=== PATIENT | female | born 1995 | race African-American/Black ===

== ENCOUNTER 2022-08-07 10:56 | Outpatient (CLI) | payer BC, SELFPAY | END 2022-08-07 10:57 | disposition home or self-care (01) | PROVIDERS: PCP Family Medicine; Visit Provider Family Medicine | DX: Z00.00 Encounter for general adult medical examination without abnormal findings (principal); R10.9 Unspecified abdominal pain; K59.01 Slow transit constipation; F41.9 Anxiety disorder, unspecified | CPT/HCPCS: 80053; 84443 ==

== ENCOUNTER 2022-09-19 08:25 | Day surgery (SDC) | payer BC, SELFPAY ==
[2022-09-19 08:29] VITALS: BP 137/83; PULSE 116; RESP 18; TEMP 36.5; O2SAT 99; BMI 34.9
--- NOTE | 2022-09-19 09:02 | ED_ITS ---
HPI - General Adult General Chief complaint: Urogenital Problems, Female Stated complaint: bartholin cyst Time Seen by Provider: 09/19/22 08:30 History of Present Illness HPI narrative: Patient is a 27-year-old female who has had a history of marsupialization of a couple of Bartholin's cyst, she has had a 91 as well. She reports on the right lateral part of her labial area. She has had some mild nausea with this as well. She has a long history of mental health issues. She has had no fevers or chills. Her vital signs here are unremarkable. She does have slightly elevated pulse retested this seems a little bit lower. Related Data Previous Rx's Medication Instructions Recorded clonazepam 0.5 mg tablet (Klonopin) 0.5 mg PO BID #60 tabs 08/07/22 lorazepam 0.5 mg tablet 0.5 mg PO BID PRN anxiety #10 tabs 08/07/22 lamotrigine 25 mg tablet (Lamictal) 25 - 100 mg PO DIRECTED #100 08/30/22 tabs cephalexin 500 mg capsule 500 mg PO TID #21 caps 09/19/22 oxycodone 5 mg tablet 5 mg PO Q6H PRN 4 OR GREATER ON 09/19/22 PAIN SCALE #4 tabs Allergies Allergy/AdvReac Type Severity Reaction Status Date / Time No Known Drug Allergies Allergy Verified 09/19/22 11:10 Review of Systems Status of ROS: Reports: 6 or more systems reviewed and unremarkable except as noted in History and below PFSH PFS Medical History (Updated 09/19/22 @ 11:03 by Ambika Cardoso MD) Anxiety ?F41.9 - Anxiety disorder, unspecified (ICD-10) Binge eating ?R63.2 - Polyphagia (ICD-10) Bipolar II disorder ?F31.81 - Bipolar II disorder (ICD-10) Depression with anxiety ?F41.8 - Other specified anxiety disorders (ICD-10) History of migraine ?Z86.69 - Personal history of other diseases of the nervous system and sense organs (ICD-10) OCD (obsessive compulsive disorder) ?F42.9 - Obsessive-compulsive disorder, unspecified (ICD-10) Panic attacks ?F41.0 - Panic disorder [episodic paroxysmal anxiety] (ICD-10) Surgical History (Updated 09/19/22 @ 11:03 by Ambika Cardoso MD) Bartholin's duct cyst (2020) ?N75.0 - Cyst of Bartholin's gland (ICD-10) Social History (Updated 09/19/22 @ 11:05 by Ambika Cardoso MD) Highest level of school completed/degree received: some college, no degree Smoking Status: Never smoker How often do you have a drink containing alcohol: monthly or less AUDIT-C Alcohol total score: 1 Non-prescribed substance use: denies use Caffeine: Yes Little interest or pleasure in doing things: several days Feeling down, depressed, or hopeless: nearly every day Do you think of yourself as: straight/heterosexual Gender Identity: female Are you currently sexually active: Yes In the past 12 months, how many sex partners have you had: one Are you using contraception or practicing any form of control: Yes (IUD) service: No Exam Narrative: Exam Narrative: Objective: Vital signs show slightly elevated pulse Afebrile Abdomen is benign With nurse Desirae present exam externally of the perineum shows no warmth erythema no swelling no fluctuance. The patient does point to her right lateral labia area is the area of difficulty. But again there is no palpable mass or redness. No swelling Const: Vital Signs, click to edit/add: Vital Signs - 24 hr 09/19/22 08:29 09/19/22 11:11 09/19/22 12:05 Temperature 97.7 F 98.2 F 97.1 F L Pulse Rate 89 66 Pulse Rate [Right Pulse Oximeter] 116 H Respiratory Rate 18 16 Blood Pressure 121/88 108/70 Blood Pressure [Ri ght Upper Arm] 137/83 Pulse Oximetry 99 97 98 Oxygen Delivery Me thod Room Air Room Air Room Air 09/19/22 12:20 09/19/22 12:30 Temperature 97.6 F 97.6 F Pulse Rate 72 76 Pulse Rate [Right Pulse Oximeter] Respiratory Rate 16 16 Blood Pressure 114/69 113/81 Blood Pressure [Ri ght Upper Arm] Pulse Oximetry 98 98 Oxygen Delivery Me thod Room Air Room Air Course Vital Signs Vital signs: Initial Vital Signs Temperature 97.7 F 09/19/22 08:29 Temperature Source Temporal Artery Scan 09/19/22 08:29 Pulse Rate 116 H 09/19/22 08:29 Pulse Rhythm Regular 09/19/22 08:29 Pulse Strength 3+ Normal 09/19/22 08:29 Respiratory Rate 18 09/19/22 08:29 Blood Pressure 137/83 09/19/22 08:29 Blood Pressure Mean 101 09/19/22 08:29 Blood Pressure Position Supine 09/19/22 08:29 Pulse Oximetry 99 09/19/22 08:29 Oxygen Delivery Method Room Air 09/19/22 08:29 Vital Signs Temperature 97.7 F 09/19/22 08:29 Pulse Rate 116 H 09/19/22 08:29 Respiratory Rate 18 09/19/22 08:29 Blood Pressure 137/83 09/19/22 08:29 Pulse Oximetry 99 09/19/22 08:29 Oxygen Delivery Method Room Air 09/19/22 08:29 Temperature 97.6 F 09/19/22 12:30 Pulse Rate 76 09/19/22 12:30 Respiratory Rate 16 09/19/22 12:30 Blood Pressure 113/81 09/19/22 12:30 Pulse Oximetry 98 09/19/22 12:30 Oxygen Delivery Method Room Air 09/19/22 12:30 Medical Decision Making MDM Narrative Medical decision making narrative: Patient has had history of Bartholin's cyst status post or x2, ER x1 with I&D. At this point ice do not see any fluctuant area to I&D. I think maybe antibi otics would be appropriate, warm soaks Sitz baths, follow-up with OBGYN in the next 3-5 days. Return sooner as needed, Tylenol or Advil as needed. Lab Data Labs: Lab Results 09/19/22 Range/Units 10:57 Urine HCG, Qual Negative (Negative) SARS-CoV-2 Ag (Rapid) Negative (Negative) Discharge Plan Discharge Clinical Impression: Perineum pain, female Condition: Stable Activity Level: Light activity Activity Detail: Nothing in the vagina for 2 weeks (no tampons or intercourse). Off work today through Saturday. Discharge Diet: Regular
[2022-09-19] MEDS: LACTATED RINGERS 1000 ML 1,000 ML 100 ML IV (11:05)
[2022-09-19] MEDS: SODIUM CHLORIDE 0.9 % (FLUSH) 10 ML SYRINGE IVF (11:05)
[2022-09-19 11:07] LABS: Ur HCG Qualitative* Negative (Negative)
[2022-09-19 11:11] VITALS: BP 121/88; PULSE 89; RESP 16; TEMP 36.8; O2SAT 97; BMI 34.9
[2022-09-19 11:21] LABS: SARS Antigen* Negative (Negative)
--- NOTE | 2022-09-19 11:27 | W.ANESCHARGE ---
Anesthesia Charges Start Date/Time Anesthesia Start Date: 09/19/22 Anesthesia Start Time: 11:20 Stop Date/Time Anesthesia Stop Date: 09/19/22 Anesthesia Stop Time: 12:00 Summary Emergency: MDA
[2022-09-19] MEDS: CEFAZOLIN 2 GM INJ IVP (11:30)
--- NOTE | 2022-09-19 11:59 | W.PM.GYNPROC ---
Procedure Note Time Seen by Provider: 11:59 Date Seen: 09/19/22 Procedure Details: PREOPERATIVE DIAGNOSIS: 1. Infected right Bartholin's duct cyst. POSTOPERATIVE DIAGNOSIS: 1. Infected right Bartholin's duct cyst. PROCEDURE: Incision and drainage with marsupialization right Bartholin's duct cyst. SURGEON: Janae. ANESTHESIA: Monitored anesthesia care and local. COMPLICATIONS: None. ESTIMATED BLOOD LOSS: Less than 10 mL. FINDINGS: Golf ball-sized swelling in the right posterior labia consistent with plans duct cyst. Surrounding erythema. Purulence fluid within the cyst. PROCEDURE NOTE: After obtaining informed consent, the patient was taken to the operating room where she received MAC anesthesia. She was prepared and draped in the normal, sterile fashion in the dorsal lithotomy position. An examination was performed under anesthesia which confirmed the findings noted above. A total 3 mL 1% lidocaine plain was injected subcutaneously into the medial superior aspect of the cyst just within the vaginal introitus to make a small wheal. An 11 blade was then used to make a stab wound into the cyst. Immediately, blood and purulent fluid extruded from the incision. The fluid was cultured. Pressure was maintained on the cyst until it completely drained. The incision was extended to 10 mm. The underlying cyst wall was identified and grasped with 2 Mora clamps. The incision was then marsupialized by suturing the skin edge incorporating the underlying cyst wall in a running locking fashion circumferentially with a 3-0 chromic suture. The opening was reduced to about 5 mm following marsupialization. The patient tolerated the procedure well. Sponge, lap, needle, and instrument counts reported as correct x2. The patient was taken to the recovery room awake and in stable condition. She received 2 g IV Ancef preoperatively.
--- NOTE | 2022-09-19 12:04 | W.ANESCHARGE ---
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
[2022-09-19 12:05] VITALS: BP 108/70; PULSE 66; TEMP 36.2; O2SAT 98
[2022-09-19 12:20] VITALS: BP 114/69; PULSE 72; RESP 16; TEMP 36.4; O2SAT 98
[2022-09-19 12:30] VITALS: BP 113/81; PULSE 76; RESP 16; TEMP 36.4; O2SAT 98
== END 2022-09-19 13:02 | disposition home or self-care (01) ==
LOC: ED 10:39 → OR 10:46
PROVIDERS: Emergency Provider Family Medicine; PCP Family Medicine; Visit Provider Obstetrics & Gynecology
PROC: (CPT 56740; principal; 2022-09-19 11:00)
DX: N75.0 Cyst of Bartholin's gland (principal)
CPT/HCPCS: 56440; 00940; 81025; 87070; 87075; 87205; 87426; 99140; 99283; 99284; J0690; J1100; J1885; J2250; J2405; J2704; J3010; J7120

== ENCOUNTER 2022-09-28 09:50 | Emergency (ER) | payer BC, SELFPAY ==
[2022-09-28 10:01] VITALS: BP 135/99; PULSE 91; RESP 18; TEMP 36.7; O2SAT 98; BMI 34.9
--- OUTSIDE RECORDS SUMMARY | 2022-09-28 10:38 | XMS_ITS | Summary of Care ---
Author Name Unknown Organization [facility] Address [address] [address] Encounter 01/19/19 - 01/19/19 [facility] [address] [place] [id number] [facility] Encounter Diagnosis Vulvar cyst(Discharge Diagnosis) - 01/19/19 Discharge Disposition: Home Attending Physician: Mayo Small MD Admitting Physician: Mayo Small MD Referring Physician: Mayo Small MD Allergies, Adverse Reactions, Alerts No Known Allergies Assessment and Plan Extracted from: Title:Clinic Visit Author:Mayo Small MD Date :01/19/19 Vulvar cyst Right vulvar majora cyst possibly arising from a hair follicle.?? Patient advised to do sitz bath or use warm compresses.?? Also, patient advised to??discontinue shaving with razors. ??She may use hair clippers to shaving the future.?? She should return in 1 week if not improved or if spontaneous??drainage has not occurred. Functional Status 01/19/19 ADLs (func) Independent Disabilities (func) None Medications Prozac 40 mg oral capsule 40 MG = 1 CAP, orally, 1 time a day, Refill(s) 0 Start Date: 01/19/19 Status: Ordered Vital Signs Most recent to oldest [Reference Range]: 1 Blood Pressure [100-150/50-95 mmHg] 132/ 84mmHg (01/19/19 10:09 AM) BP Site Right upper arm (01/19/19 10:09 AM) BP Cuff Size Regular cuff (01/19/19 10:09 AM) Pulse Site Brachial (01/19/19 10:09 AM) Height 166.5 cm (01/19/19 10:09 AM) Weight 106.7 kg (01/19/19 10:09 AM) Social History Social History Type Response Smoking Status Never (less than 100 in lifetime); Smoking in Household No; Interest in Smoking Cessation Class No; Pt received Marcus Smoking Cessation Custom Ed N/A entered on: 01/19/19 Sex Female Mental Status 01/19/19 Able to Report correct day of the week C orrect Able to Report correct month Accurate wi thin 5 days Able to Report correct year Correct
--- NOTE | 2022-09-28 11:04 | ED.ANXIETY ---
HPI - Anxiety General Date Seen: 09/28/22 Chief Complaint: Anxiety Stated Complaint: Anxiety Time Seen by Provider: 09/28/22 09:56 Source: patient Mode of arrival: ambulatory Limitations: no limitations History of Present Illness HPI narrative: Patient is a delightful 27-year-old female presents here with crippling anxiety. She has had this now for approximately 6 months to a year, but tells me it has been for longer, she has some nausea, vomiting, and abdominal discomfort which she said is typical for anxiety, she has been worked up with CT scans, ultrasounds, and [facility], endoscopy and also colonoscopy for this. She usually takes Zofran but did not have any at home, today, and also takes clonazepam. But failed to take her clonazepam. She comes into the emergency room here for help with this. He said this increased overnight, with the episodes of vomiting, nausea and abdominal discomfort. She denies any blood in her vomitus, any melena type stools, denies a fevers chills dysuria frequency, does not think she is as has an IUD. Denies any suicidal or homicidal ideation, does use occasional marijuana but for the last 6 months she has been doing really well with this and use it only occasionally on weekends, she tells me there has not been a case or she has used it more than she needs, and does not think the nausea vomiting is secondary to this. Is followed by Lindsay Mendoza nurse practitioner, recently started on other medication. And also sees for primary care. Would be interested in speaking to a mental health professional, complaint: anxiety Severity: moderate Quality: constant and improving Place: home and work History of similar episodes: Yes Provoking factors: work/job stress Related Data Home Medications Medication Instructions Recorded Confirmed escitalopram oxalate 10 mg tablet 10 mg PO DAILY 09/28/22 09/28/22 hydroxyzine pamoate 25 mg capsule 25 - 50 mg PO Q6H PRN anxiety 09/28/22 09/28/22 Previous Rx's Medication Instructions Recorded clonazepam 0.5 mg tablet (Klonopin) 0.5 mg PO BID #60 tabs 08/07/22 lorazepam 0.5 mg tablet 0.5 mg PO BID PRN anxiety #10 tabs 08/07/22 lamotrigine 25 mg tablet (Lamictal) 25 - 100 mg PO DIRECTED #100 08/30/22 tabs aripiprazole 5 mg tablet (Abilify) 5 mg PO QHS #30 tabs 09/20/22 Allergies Allergy/AdvReac Type Severity Reaction Status Date / Time No Known Drug Allergies Allergy Verified 09/19/22 11:10 Review of Systems Status of ROS: Reports: 10 or more systems reviewed and unremarkable except as noted in History and below PFSH PFS Medical History Anxiety ?F41.9 - Anxiety disorder, unspecified (ICD-10) Binge eating ?R63.2 - Polyphagia (ICD-10) Bipolar II disorder ?F31.81 - Bipolar II disorder (ICD-10) Depression with anxiety ?F41.8 - Other specified anxiety disorders (ICD-10) History of migraine ?Z86.69 - Personal history of other diseases of the nervous system and sense organs (ICD-10) OCD (obsessive compulsive disorder) ?F42.9 - Obsessive-compulsive disorder, unspecified (ICD-10) Panic attacks ?F41.0 - Panic disorder [episodic paroxysmal anxiety] (ICD-10) Surgical History Bartholin's duct cyst (2020) ?N75.0 - Cyst of Bartholin's gland (ICD-10) Social History Highest level of school completed/degree received: some college, no degree Smoking Status: Never smoker How often do you have a drink containing alcohol: monthly or less AUDIT-C Alcohol total score: 1 Non-prescribed substance use: denies use Caffeine: Yes Little interest or pleasure in doing things: more than half the days Feeling down, depressed, or hopeless: several days Do you think of yourself as: straight/heterosexual Gender Identity: female Are you currently sexually active: Yes In the past 12 months, how many sex partners have you had: one Are you using contraception or practicing any form of control: Yes (IUD) service: No Exam Narrative: Exam Narrative: She is seen with nurse Henny present. Patient is speaking normally, no problem with slurring words, oriented x3. GCS 15/15, Head eyes ears nose and throat exam show equal pupils, no scleral icterus, extraocular muscles are normal, no facial droop, speech is normal, trachea normal and midline. Thyroid normal midline palpable not enlarged. Chest shows symmetrical rise bilaterally, normal auscultation with no wheezes, no increased work of breathing, no overt bruising or lesions seen, no tenderness is noted on auscultation. Heart sounds normal with no S3-S4 no murmurs clicks or gallops. Abdomen shows no obvious masses or hepatosplenomegaly, no organomegaly, bowel sounds are normal in all quadrants. No tenderness is noted also in all quadrants. Upper and lower extremities show normal power, normal range of motion, pulses are normal, sensations normal, fine motor movements are normal, pelvis is stable to rocking. Cervical spine shows normal range of motion, and palpably not tender. Thoracic spine shows normal range of motion, and palpably not tender, lumbar spine shows no tenderness to palpation percussion and is otherwise normal range of motion. Skin shows no rashes, petechiae or eccymosis. Const: Vital Signs, click to edit/add: Vital Signs - 24 hr 09/28/22 10:01 Temperature 98.0 F Pulse Rate [Left P ulse Oximeter] 91 Respiratory Rate 18 Blood Pressure [Le ft Upper Arm] 135/99 H Pulse Oximetry 98 Oxygen Delivery Me thod Room Air Documenting provider has reviewed patient's vital signs: yes Course Course Hospital Course: Patient has been stable here, I think at this point with the mental health professional talking to her also we can send her home. She is not suicidal we have a good treatment plan follow-up with psychologist, she can use her Klonopin at home, and up further follow-up with primary care. Return here as needed. Vital Signs Vital signs: Initial Vital Signs Respiratory Effort Normal 09/28/22 09:52 Respiratory Depth Normal 09/28/22 09:52 Respiratory Pattern Irregular 09/28/22 09:52 Vital Signs Temperature 98.0 F 09/28/22 10:01 Pulse Rate 91 09/28/22 10:01 Respiratory Rate 18 09/28/22 10:01 Blood Pressure 135/99 H 09/28/22 10:01 Pulse Oximetry 98 09/28/22 10:01 Oxygen Delivery Method Room Air 09/28/22 10:01 Temperature 98.0 F 09/28/22 10:01 Pulse Rate 91 09/28/22 10:01 Respiratory Rate 18 09/28/22 10:01 Blood Pressure 135/99 H 09/28/22 10:01 Pulse Oximetry 98 09/28/22 10:01 Oxygen Delivery Method Room Air 09/28/22 10:01 MDM - Anxiety MDM Narrative Medical decision making narrative: Differential diagnosis includes but is not limited life-threatening diagnosis is of severe depression with suicidal plan, chemical intoxication with suicidal ideation and risk of self-harm, schizoaffective disorder with risk of self-harm, bipolar disorder with severe depressive phase and risk of self-harm, personality disorder with risk of self-harm, depression due to hyperthyroidism, metabolic derangement, or SECURITY AND COMPLIANCE ANALYST abnormality Lab Data Attestation: I reviewed the patient's lab results. Labs: Lab Results 09/28/22 Range/Units 10:56 WBC 11.83 H (4.50-11.00) K/uL RBC 4.51 (4.00-5.20) m/uL Hgb 14.1 (12.0-16.0) gm/dL Hct 41.9 (33.0-51.0) % MCV 93 (80-100) fL MCH 31 (26-34) pg MCHC 34 (32-36) gm/dL RDW Coeff of Marizol 12.5 (11.5-15.5) % Plt Count 170 (140-440) K/uL Neut % (Auto) 78.3 H (42.0-72.0) % Lymph % (Auto) 14.7 L (20-44) % [place] % (Auto) 6.8 (0.0-11.0) % Eos % (Auto) 0.0 (0.0-7.0) % Baso % (Auto) 0.1 (0.0-3.0) % Neut # (Auto) 9.30 H (1.7-7.0) K/uL Lymph # (Auto) 1.70 (0.90-2.90) K/uL [place] # (Auto) 0.80 (0.00-0.90) K/UL Eos # (Auto) 0.00 (0.00-0.50) K/uL Baso # (Auto) 0.00 (0.00-0.30) K/uL Sodium 137 (135-149) mmol/L Potassium 4.1 (3.6-5.1) mmol/L Chloride 107 (96-114) mmol/L Carbon Dioxide 20 (20-32) mmol/L BUN 13 (5-24) mg/dL Creatinine 0.7 (0.5-1.5) mg/dL Estimated Creat Clear 110.55 Estimated GFR 123 ml/min Glucose 84 (60-115) mg/dL Calcium 9.4 (8.4-10.6) mg/dL Discharge Plan Discharge Clinical Impression: Anxiety Patient Disposition: Home w/ Parent or Adult Condition: Stable Instructions: Anxiety (ED), Cyclic Vomiting Syndrome (ED) Additional Instructions: Home rest take her Klonopin as directed I have given you prescription for some Zofran, follow-up for this suggestions that the psychologist had, return as needed. Prescriptions: No Action clonazepam [Klonopin] 0.5 mg tablet 0.5 mg PO BID Qty: 60 0RF lorazepam 0.5 mg tablet 0.5 mg PO BID PRN (Reason: anxiety) Qty: 10 0RF lamotrigine [Lamictal] 25 mg tablet 25 - 100 mg PO DIRECTED Qty: 100 1RF Rx Instructions: take 1 t po qd x 14 d, then 2 t qd x 14 d, then 4 t qd for mood aripiprazole [Abilify] 5 mg tablet 5 mg PO QHS Qty: 30 1RF hydroxyzine pamoate 25 mg capsule 25 - 50 mg PO Q6H PRN (Reason: anxiety) escitalopram oxalate 10 mg tablet 10 mg PO DAILY Follow Up/Referrals: Kam Tuttle MD [Primary Care Provider] - Stand Alone Forms: [employer] Info Instructions
[2022-09-28 11:07] LABS: Basophils Percent Auto 0.1 % (0.0-3.0); Hematocrit 41.9 % (33.0-51.0); Hemoglobin* 14.1 gm/dL (12.0-16.0); Immature Granulocytes Pct Auto 0.1 %; Lymphocytes Percent Auto 14.7 % (20-44); Mean Corpuscular HGB Conc 34 gm/dL (32-36); Mean Corpuscular Hemoglobin 31 pg (26-34); Mean Corpuscular Volume 93 fL (80-100); Monocytes Percent Auto 6.8 % (0.0-11.0); Neutrophils Percent Auto 78.3 % (42.0-72.0); Platelet Count* 170 K/uL (140-440); RDW Coefficient of Variation % 12.5 % (11.5-15.5); Red Blood Count 4.51 m/uL (4.00-5.20); White Blood Count* 11.83 K/uL (4.50-11.00)
[2022-09-28 11:10] LABS: Slide Review Reflex No
[2022-09-28] MEDS: clonazePAM 0.5 MG TABLET PO (11:11)
[2022-09-28] MEDS: ONDANSETRON ODT 4 MG TAB PO (11:11)
[2022-09-28 11:21] LABS: Chloride* 107 mmol/L (96-114); Sodium* 137 mmol/L (135-149)
[2022-09-28 11:22] LABS: Potassium* 4.1 mmol/L (3.6-5.1)
[2022-09-28 11:24] LABS: Creatinine* 0.7 mg/dL (0.5-1.5); Est. Creatinine Clearance* 110.55; Estimated Glomerular Filt Rate 123 ml/min
[2022-09-28 11:25] LABS: Blood Urea Nitrogen* 13 mg/dL (5-24); Calcium* 9.4 mg/dL (8.4-10.6); Carbon Dioxide* 20 mmol/L (20-32); Glucose* 84 mg/dL (60-115)
== END 2022-09-28 13:58 | disposition home or self-care (01) ==
PROVIDERS: Emergency Provider Family Medicine; PCP Family Medicine
DX: F41.9 Anxiety disorder, unspecified (principal)
CPT/HCPCS: 36415; 80048; 80306; 81001; 84703; 85025; 99283; 99284; A9270

== ENCOUNTER 2023-06-05 13:16 | Outpatient (CLI) | payer OTHER, SELFPAY ==
[2023-06-06 00:55] LABS: Chlamydia DNA Amplified* NOT DETECTED (No Detected); GC DNA Amplified* NOT DETECTED (No Detected)
== END 2023-06-05 13:17 | disposition home or self-care (01) ==
LOC: LKVREF 13:17
PROVIDERS: PCP Family Medicine; Visit Provider Nurse Practitioner Family
DX: N92.0 Excessive and frequent menstruation with regular cycle (principal); R10.9 Unspecified abdominal pain
CPT/HCPCS: 87086; 87491; 87591

== ENCOUNTER 2024-06-18 11:54 | Outpatient (CLI) | payer BC, SELFPAY | END 2024-06-18 11:55 | disposition home or self-care (01) | LOC: LKVREF 11:55 | PROVIDERS: PCP Family Medicine; Visit Provider Family Medicine | DX: Z13.220 Encounter for screening for lipoid disorders (principal); Z13.29 Encounter for screening for other suspected endocrine disorder; L68.0 Hirsutism | CPT/HCPCS: 80061; 84144; 84403; 84443 ==

== ENCOUNTER 2024-08-07 11:33 | Outpatient (CLI) | payer MEDICAID, SELFPAY | END 2024-08-07 11:34 | disposition home or self-care (01) | LOC: LKVREF 11:34 | PROVIDERS: PCP Family Medicine; Visit Provider Family Medicine | DX: R51.9 Headache, unspecified (principal) | CPT/HCPCS: 83020; 83021; 85660 ==

== ENCOUNTER 2024-08-07 12:27 | Emergency (ER) | payer MEDICAID, SELFPAY ==
[2024-08-07] VITALS (7 sets, daily range): BP systolic 94–126; BP diastolic 63–88; PULSE 48–94; RESP 14–20; TEMP 36.6–37.4; O2SAT 97–100; BMI 28.3
--- OUTSIDE RECORDS SUMMARY | 2024-08-07 12:30 | XMS_ITS | Clinical Summary ---
Author Organization [facility] Address [address] [place] [id number] Care Team Providers Care Tafe Lecturer Name Role Phone Clinic, No Pcp Or Primary Care Provider Unavaila ble Allergies No known active allergies Medications levonorgestrel (MIRENA IU) Inject intrauterine . Active ondansetron (ZOFRAN ODT) 4 mg disintegrating tabletIndications:N ausea and vomiting, unspecified vomiting type Place 1 or 2 Tablets (4-8 mg) on the tongue every 8 hours if needed for Nausea/Vomit ing. 30 Tablet 06/19/2022 10:04 AM MECHANICAL ENGINEERING DIRECTOR 3 Active sucralfate (CARAFATE) 1 gram tabletIndications:G astritis, presence of bleeding unspecified, unspecified chronicity, unspecified gastritis type Take 1 Tablet (1 g) by mouth four times daily before meals and at bedtime. 120 Tablet 06/19/2022 10:04 AM MECHANICAL ENGINEERING DIRECTOR 3 Active FLUoxetine (PROzac) 20 mg capsuleIndications: Anxiety Take 1 Capsule (20 mg) by mouth every morning. 30 Capsule 1 3 Active hydrOXYzine pamoate (VISTARIL) 25 mg capsuleIndications: Anxiety Take 1-2 Capsules (25-50 mg) by mouth every 6 hours if needed for Anxiety. 24 Capsule 3 Active prochlorperazine (COMPAZINE) 10 mg tabletIndications:N ausea and vomiting, unspecified vomiting type Take 1 Tablet (10 mg) by mouth every 8 hours if needed for Nausea/Vomit ing. 20 Tablet 4 Active metoclopramide HCl (REGLAN) 10 mg tabletIndications:N ausea and vomiting, unspecified vomiting type Take 1 Tablet (10 mg) by mouth every 6 hours if needed for Nausea/Vomit ing. 15 Tablet 4 Active omeprazole (PRILOSEC) 40 mg Delayed-Release capsuleIndications: Epigastric pain Take 1 Capsule (40 mg) by mouth once daily. 30 Capsule 4 Active metoclopramide HCl (REGLAN) 10 mg tabletIndications:N ausea and vomiting, unspecified vomiting type,Epigastric pain Take 1 Tablet (10 mg) by mouth every 6 hours if needed for Nausea/Vomit ing. 15 Tablet 5 Active OLANzapine (ZYPREXA, FILM COATED TABLET,) 10 mg tabletIndications:N ausea and vomiting, unspecified vomiting type Take 0.5 Tablets (5 mg) by mouth every 6 hours if needed (nausea and vomiting). 15 Tablet 5 Active Active Problems Problem Noted Date Diagnosed Date Bartholin's gland cyst 12/18/2018 Obesity with body mass index 30 or greater 12/18 Anxiety 11/17/2018 Major depressive disorder, s nelia episode, severe without psychotic features 11/17/2018 Breast hypertrophy 01/29/2018 Neck pain 01/29/2018 Encounters Date Type Department Care Team Description 08/06/2024 Nurse Triage [facility] Centralized Nurse Triage Clinic, No Pcp Or Headache 07/23/2024 12:38 PM MECHANICAL ENGINEERING DIRECTOR - 07/23/2024 4:48 PM MECHANICAL ENGINEERING DIRECTOR Emergency [address] [address] Edis Arce MD Dahl, Bartolo Freeman MD Status migrainosus (Primary Dx); Cervicogenic headache Discharge Disposition: Home Self Care 07/23/2024 Travel 07/23/2024 Nurse Triage [place] [id number] [place] [phone] Clinic, No Pcp Or Headache 06/24/2024 5:04 PM MECHANICAL ENGINEERING DIRECTOR - 06/24/2024 9:43 PM MECHANICAL ENGINEERING DIRECTOR Emergency [address] [address] Radha Muniz PA Haug, Alec Joseph, MD Nausea and vomiting, unspecified vomiting type (Primary Dx); Chronic abdominal pain; Anxiety Discharge Disposition: Home Self Care 06/24/2024 Travel 06/08/2024 Nurse Triage [facility] Centralized Nurse Triage Clinic, No Pcp Or Arrhythmia 06/04/2024 7:29 PM MECHANICAL ENGINEERING DIRECTOR - 06/04/2024 9:39 PM [facility] [[email or web address] Emergency [address] [address] Fouzia Robbins PA Nausea and vomiting, unspecified vomiting type (Primary Dx); Epigastric pain Discharge Disposition: Home Self Care 06/04/2024 Travel 05/20/2024 7:19 PM MECHANICAL ENGINEERING DIRECTOR - 05/20/2024 10:[address] [address] Radha Muniz PA Epigastric pain (Primary Dx); Nausea and vomiting, unspecified vomiting type; Anxiety Discharge Disposition: Home Self Care 05/20/2024 Travel 05/13/2024 12:03 AM MECHANICAL ENGINEERING DIRECTOR - 05/13/2024 1:[address] [address] Leo Benoit MD Nausea and vomiting, unspecified vomiting type (Primary Dx); Anxiety Discharge Disposition: Home Self Care 05/13/2024 Travel from Last 3 Months Social History Tobacco Use Types Packs/Day Years Used Date Smoking Tobacco: Never Smokeless Tobacco: Never Tobacco Cessation:Counseling Given: Not Answered Alcohol Use Standard Drinks/Week Comments Yes 0 (1 standard drink = 0.6 oz pur e alcohol) social PHQ-2 Answer Date Recorded PHQ-2 TOTAL SCORE 5 06/21/2022 Interpersonal Safety Answer Date Record ed Are you being hit, kicked, p ushed or yelled at (see row info)? No 07/23/2024 Interpersonal Safety Abuse 12 - 18 Not on file 07/23/2024 Interpersonal Safety Ambulatory Vulnerability No t on file 07/23/2024 Comments No Sex and Gender Information Value Date Recorded Sex Assigned at Not on file Legal Sex Female 5:52 AM MECHANICAL ENGINEERING DIRECTOR Gender Identity Not on file Sexual Orientation Not on file Obstetrics History Para Term AB IAB SAB Ectopic Multiple Livin g Live Births 0 0 0 0 0 0 0 0 0 0 0 Last Filed Vital Signs Vital Sign Reading Time Taken Comments Blood Pressure 109/62 07/23/2024 3:53 PM MECHANICAL ENGINEERING DIRECTOR Pulse 60 07/23/2024 3:53 PM MECHANICAL ENGINEERING DIRECTOR Temperature 36.7 C (98 F) 07/23/2024 12:45 PM MECHANICAL ENGINEERING DIRECTOR Respiratory Rate 16 07/23/2024 12:42 PM MECHANICAL ENGINEERING DIRECTOR Oxygen Saturation 100% 07/23/2024 3:15 PM MECHANICAL ENGINEERING DIRECTOR Inhaled Oxygen Concentration - - Weight 81.6 kg (180 lb) 07/23/2024 1:00 PM MECHANICAL ENGINEERING DIRECTOR Height 165.1 cm (5' 5) 07/23/2024 1:00 PM MECHANICAL ENGINEERING DIRECTOR Body Mass Index 29.95 07/23/2024 1:00 PM MECHANICAL ENGINEERING DIRECTOR Plan of Treatment Health Maintenance Due Date Last Done Comments Tdap 2008 HIV for age 15-65 2012 Hepatitis C screening for ag e 18-79 2015 Tetanus booster 2017 Pap test for age 21-65 2018 BMI (ht and wt on same day) for age 18+ 06/21/2023 06/21/2022, 06/19/2022 Depression screening for age 12+ 06/21/2023 06/21/2022, 06/21/2022, 06/21/2022 COVID-19 vaccine series ( season) 2024 Influenza for age 9-49 02/02/2024 Pneumococcal series for age 6-49 Aged Out No longer eligible b ased on patient's age to complete this topic Procedures Procedure Name Priority Date/Time Associated Diagnosis Comments CT HEAD BRAIN WO STAT 07/23/2024 2:51 PM MECHANICAL ENGINEERING DIRECTOR EKG 12 LEAD STAT 06/24/2024 8:22 [address] ABDOMEN PELVIS W STAT 06/24/2024 6 :42 PM MECHANICAL ENGINEERING DIRECTOR CBC WITH AUTO DIFFERENTIAL STAT 06/24/2024 5:27 PM MECHANICAL ENGINEERING DIRECTOR ,SERUM QUALITATIVE STAT 06/24/2024 5:27 PM MECHANICAL ENGINEERING DIRECTOR LIPASE STAT 06/24/2024 5:27 PM MECHANICAL ENGINEERING DIRECTOR HEPATIC FUNCTION PANEL STAT 06/24/2024 5:27 PM MECHANICAL ENGINEERING DIRECTOR BASIC METABOLIC PANEL STAT 06/24/2024 5:27 PM MECHANICAL ENGINEERING DIRECTOR CBC WITH AUTO DIFFERENTIAL STAT 06/24/2024 5:27 PM MECHANICAL ENGINEERING DIRECTOR CBC WITH AUTO DIFFERENTIAL STAT 06/04/2024 8:11 PM MECHANICAL ENGINEERING DIRECTOR LIPASE STAT 06/04/2024 8:11 PM MECHANICAL ENGINEERING DIRECTOR HEPATIC FUNCTION PANEL STAT 06/04/2024 8:11 PM MECHANICAL ENGINEERING DIRECTOR BASIC METABOLIC PANEL STAT 06/04/2024 8:11 PM MECHANICAL ENGINEERING DIRECTOR CBC WITH AUTO DIFFERENTIAL STAT 06/04/2024 8:11 PM MECHANICAL ENGINEERING DIRECTOR EKG 12 LEAD STAT 05/20/2024 8:17 PM MECHANICAL ENGINEERING DIRECTOR TSH STAT 05/20/2024 7:55 PM MECHANICAL ENGINEERING DIRECTOR CBC WITH AUTO DIFFERENTIAL STAT 05/20/2024 7:55 PM MECHANICAL ENGINEERING DIRECTOR MAGNESIUM STAT 05/20/2024 7:55 PM MECHANICAL ENGINEERING DIRECTOR ,SERUM QUALITATIVE STAT 05/20/2024 7:55 PM MECHANICAL ENGINEERING DIRECTOR LIPASE STAT 05/20/2024 7:55 PM MECHANICAL ENGINEERING DIRECTOR HEPATIC FUNCTION PANEL STAT 05/20/2024 7:55 PM MECHANICAL ENGINEERING DIRECTOR BASIC METABOLIC PANEL STAT 05/20/2024 7:55 PM MECHANICAL ENGINEERING DIRECTOR CBC WITH AUTO DIFFERENTIAL STAT 05/20/2024 7:55 PM MECHANICAL ENGINEERING DIRECTOR PLATELET ESTIMATE STAT 05/13/2024 12: 29 AM MECHANICAL ENGINEERING DIRECTOR RED CELL MORPHOLOGY STAT 05/13/2024 1 2:29 AM MECHANICAL ENGINEERING DIRECTOR ,SERUM QUALITATIVE STAT 05/13/2024 12:29 AM MECHANICAL ENGINEERING DIRECTOR LIPASE STAT 05/13/2024 12:29 AM MECHANICAL ENGINEERING DIRECTOR HEPATIC FUNCTION PANEL STAT 05/13/2024 12:29 AM MECHANICAL ENGINEERING DIRECTOR BASIC METABOLIC PANEL STAT 05/13/2024 12:29 AM MECHANICAL ENGINEERING DIRECTOR CBC W PLT NO DIFF STAT 05/13/2024 12: 29 AM MECHANICAL ENGINEERING DIRECTOR from Last 3 Months Results * CT HEAD BRAIN WO (07/23/2024 2:51 PM MECHANICAL ENGINEERING DIRECTOR) Anatomical Region Laterality Modality HEAD, BRAIN Computed Tomogra phy 07/23/2024 2:51 PM MECHANICAL ENGINEERING DIRECTOR Impressions 07/23/2024 3:31 PM MECHANICAL ENGINEERING DIRECTOR No acute intracranial process. Narrative 07/23/2024 3:31 PM MECHANICAL ENGINEERING DIRECTOR For Patients: As a result of the Cures Act, medical imaging exams and procedure reports are released immediately into your electronic medical record. You may view this report before your referring provider. If you have questions, please contact your health care provider. EXAM: CT HEAD BRAIN WO LOCATION: [facility] DATE: 07/23/2024 INDICATION: acute, severe, intractable headache, vomiting COMPARISON: None. TECHNIQUE: Routine CT Head without IV contrast. Multiplanar reformats. Dose reduction techniques were used. FINDINGS: INTRACRANIAL CONTENTS: No intracranial hemorrhage, extraaxial collection, or mass effect. No CT evidence of acute infarct. Normal parenchymal attenuation. Normal ventricles and sulci. VISUALIZED ORBITS/SINUSES/MASTOIDS: No intraorbital abnormality. Mild mucosal thickening scattered about the paranasal sinuses. No middle ear or mastoid effusion. BONES/SOFT TISSUES: No acute abnormality. Procedure Note Devon Prasanhtjb Woodruff, DO - 07/23/2024 For Patients: As a result of the Century Cures Act, medical imagingexams and procedure reports are released immediately into your electronicmedical record. You may view this report before your referring provider.If you have questions, please contact your health care provider. EXAM: CT HEAD BRAIN WO [facility] DATE: 07/23/2024 INDICATION: acute, severe, intractable headache, vomiting COMPARISON: None. TECHNIQUE: Routine CT Head without IV contrast. Multiplanar reformats.Dose reduction techniques were used. FINDINGS: INTRACRANIAL CONTENTS: No intracranial hemorrhage, extraaxial collection,or mass effect. No CT evidence of acute infarct. Normal parenchymalattenuation. Normal ventricles and sulci. VISUALIZED ORBITS/SINUSES/MASTOIDS: No intraorbital abnormality. Mildmucosal thickening scattered about the paranasal sinuses. No middle ear ormastoid effusion. BONES/SOFT TISSUES: No acute abnormality. IMPRESSION: No acute intracranial process. Edis Arce MD CT Final Resul t * EKG 12 LEAD (06/24/2024 8:22 PM MECHANICAL ENGINEERING DIRECTOR) Only the most recent of2 resultswithin the time period is included. Interpretation Sinus bradycardia with marked sinus arrhythmia Otherwise normal ECG When compared with ECG of 20-May-2024 20:17, No significant change was found BEYOND NOW Ventricular Rate 59 BPM BEYOND NOW Atrial Rate 59 BPM BEYOND NOW P-R Interval 166 ms BEYOND NOW QRS Duration 84 ms BEYOND NOW QT 458 ms BEYOND NOW QTc 453 ms BEYOND NOW P [place] 45 degrees BEYOND NOW R [place] 33 degrees BEYOND NOW T [place] 39 degrees BEYOND NOW 06/24/2024 8:22 PM MECHANICAL ENGINEERING DIRECTOR 06/24/2024 8:54 PM MECHANICAL ENGINEERING DIRECTOR Narrative [facility] NOW - 06/24/2024 8:54 PM MECHANICAL ENGINEERING DIRECTOR Test Indication: VOMITING Radha ARAUZ EKG ORD F inal Result BEYOND NOW [place], [place] * CT ABDOMEN PELVIS W (06/24/2024 6:42 PM MECHANICAL ENGINEERING DIRECTOR) Anatomical Region Laterality Modality Abdomen, Pelvis, AORTA, LIVER, SPLEEN Computed Tomography 06/24/2024 6:42 PM MECHANICAL ENGINEERING DIRECTOR Impressions 06/24/2024 6:51 PM MECHANICAL ENGINEERING DIRECTOR 1. No acute process in the abdomen or pelvis. 2. IUD in good position. Narrative 06/24/2024 6:51 PM MECHANICAL ENGINEERING DIRECTOR For Patients: As a result of the Cures Act, medical imaging exams and procedure reports are released immediately into your electronic medical record. You may view this report before your referring provider. If you have questions, please contact your health care provider. EXAM: CT ABDOMEN PELVIS W LOCATION: [facility] DATE: 06/24/2024 INDICATION: Abdominal pain and vomiting since this morning. COMPARISON: 06/21/2022 TECHNIQUE: CT scan of the abdomen and pelvis was performed following injection of IV contrast. Multiplanar reformats were obtained. Dose reduction techniques were used. CONTRAST: Omnipaque 350 90 mL FINDINGS: LOWER CHEST: Stable subpleural 5 mm nodule right lower lobe should represent a benign intrapulmonary lymph node requiring no further follow-up. HEPATOBILIARY: No significant mass or bile duct dilatation. No calcified gallstones. PANCREAS: Normal. SPLEEN: Normal size spleen. Benign granuloma unchanged. ADRENAL GLANDS: Normal. KIDNEYS/BLADDER: No significant mass, stone, or hydronephrosis. BOWEL: Normal with no obstruction or acute inflammatory change. Nothing for appendicitis. LYMPH NODES: No abdominal pelvic lymphadenopathy. VASCULATURE: Normal caliber abdominal aorta. PELVIC ORGANS: IUD in good position. No pelvic mass. No free fluid. MUSCULOSKELETAL: Normal. Procedure Note Cayden Ortega MD - 06/24/2024 For Patients: As a result of the Cures Act, medical imagingexams and procedure reports are released immediately into your electronicmedical record. You may view this report before your referring provider.If you have questions, please contact your health care provider. EXAM: CT ABDOMEN PELVIS W LOCATION: [facility] DATE: 06/24/2024 INDICATION: Abdominal pain and vomiting since this morning. COMPARISON: 06/21/2022 TECHNIQUE: CT scan of the abdomen and pelvis was performed followinginjection of IV contrast. Multiplanar reformats were obtained. Dosereduction techniques were used. CONTRAST: Omnipaque 350 90 mL FINDINGS: LOWER CHEST: Stable subpleural 5 mm nodule right lower lobe shouldrepresent a benign intrapulmonary lymph node requiring no furtherfollow-up. HEPATOBILIARY: No significant mass or bile duct dilatation. No calcifiedgallstones. PANCREAS: Normal. SPLEEN: Normal size spleen. Benign granuloma unchanged. ADRENAL GLANDS: Normal. KIDNEYS/BLADDER: No significant mass, stone, or hydronephrosis. BOWEL: Normal with no obstruction or acute inflammatory change. Nothingfor appendicitis. LYMPH NODES: No abdominal pelvic lymphadenopathy. VASCULATURE: Normal caliber abdominal aorta. PELVIC ORGANS: IUD in good position. No pelvic mass. No free fluid. MUSCULOSKELETAL: Normal. IMPRESSION: 1. No acute process in the abdomen or pelvis. 2. IUD in good position. us Radha ARAUZ CT F inal Result * (ABNORMAL) CBC WITH AUTO DIFFERENTIAL (06/24/2024 5:27 PM MECHANICAL ENGINEERING DIRECTOR) Only the most recent of3 resultswithin the time period is included. WHITE BLOOD COUNT 11.7(H) 4.5 - 11.0 thou/cu mm 06/24/2024 5:36 PM MECHANICAL ENGINEERING DIRECTOR [facility] RED BLOOD COUNT 4.03 4.00 - 5.20 mil/cu mm 06/24/2024 5:36 PM MECHANICAL ENGINEERING DIRECTOR [facility] HEMOGLOBIN 12.6 12.0 - 16.0 g/dL 06/24/2024 5:36 PM MECHANICAL ENGINEERING DIRECTOR [facility] HEMATOCRIT 36.9 33.0 - 51.0 % 06/24/2024 5:36 PM MECHANICAL ENGINEERING DIRECTOR [facility] MCV 92 80 - 100 fL 06/24/2024 5:36 PM MECHANICAL ENGINEERING DIRECTOR [facility] MCH 31.3 26.0 - 34.0 pg 06/24/2024 5:36 PM MECHANICAL ENGINEERING DIRECTOR [facility] MCHC 34.1 32.0 - 36.0 g/dL 06/24/2024 5:36 PM MECHANICAL ENGINEERING DIRECTOR [facility] RDW 12.7 11.5 - 15.5 % 06/24/2024 5:36 PM MECHANICAL ENGINEERING DIRECTOR [facility] PLATELET COUNT 186 140 - 440 thou/cu mm 06/24/2024 5:36 PM MECHANICAL ENGINEERING DIRECTOR [facility] MPV 12.1(H) 6.5 - 11.0 fL 06/24/2024 5:36 PM MECHANICAL ENGINEERING DIRECTOR [facility] NRBC 0.0 % 06/24/2024 5:36 PM MECHANICAL ENGINEERING DIRECTOR [facility] ABS NRBC 0.0 thou /cu mm 06/24/2024 5:36 PM MECHANICAL ENGINEERING DIRECTOR [facility] % NEUT 76.5 % 06/24/2024 5:36 PM MECHANICAL ENGINEERING DIRECTOR [facility] % LYMPH 16.9 % 06/24/2024 5:36 PM MECHANICAL ENGINEERING DIRECTOR [facility] % MONO 5.6 % 06/24/2024 5:36 PM MECHANICAL ENGINEERING DIRECTOR [facility] % EOS 0.3 % 06/24/2024 5:36 PM MECHANICAL ENGINEERING DIRECTOR [facility] % BASO 0.3 % 06/24/2024 5:36 PM MECHANICAL ENGINEERING DIRECTOR [facility] % IMMATURE GRAN (METAS,MYELOS,NJ OS) 0.4 % 06/24/2024 5:36 PM MECHANICAL ENGINEERING DIRECTOR [facility] ABSOLUTE NEUTROPHILS 8.9(H) 1.7 - 7.0 thou/cu mm 06/24/2024 5:36 PM MECHANICAL ENGINEERING DIRECTOR [facility] ABSOLUTE LYMPHOCYTES 2.0 0.9 - 2.9 thou/cu mm 06/24/2024 5:36 PM MECHANICAL ENGINEERING DIRECTOR [facility] ABSOLUTE MONOCYTES 0.7 <0.9 thou/cu mm 06/24/2024 5:36 PM MECHANICAL ENGINEERING DIRECTOR [facility] ABSOLUTE EOSINOPHILS 0.0 <0.5 thou/cu mm 06/24/2024 5:36 PM MECHANICAL ENGINEERING DIRECTOR [facility] ABSOLUTE BASOPHILS 0.0 <0.3 thou/cu mm 06/24/2024 5:36 PM MECHANICAL ENGINEERING DIRECTOR [facility] ABSOLUTE IMMATURE GRANULOCYTES(MET ,MYELOS,PROS) 0.1 <0.3 thou/cu mm 06/24/2024 5:36 PM MECHANICAL ENGINEERING DIRECTOR [facility] Blood BLOOD SPECIMEN / Unknown IV Start / Unknown 06/24/2024 5:27 PM MECHANICAL ENGINEERING DIRECTOR 06/24/2024 5:31 PM MECHANICAL ENGINEERING DIRECTOR Radha ARAUZ HEMATOLOGY F inal Result [facility] [address] [place], [place] [id number], [place] [phone] * ,SERUM QUALITATIVE (06/24/2024 5:27 PM MECHANICAL ENGINEERING DIRECTOR) Only the most recent of3 resultswithin the time period is included. ,SERU M Negative Negative 06/24/2024 5:46 PM MECHANICAL ENGINEERING DIRECTOR [facility] Blood BLOOD SPECIMEN / Unknown IV Start / Unknown 06/24/2024 5:27 PM MECHANICAL ENGINEERING DIRECTOR 06/24/2024 5:31 PM MECHANICAL ENGINEERING DIRECTOR Radha ARAUZ CHEMISTRY F inal Result [facility] [address] [place] [id number], [place] [phone] * LIPASE (06/24/2024 5:27 PM MECHANICAL ENGINEERING DIRECTOR) Only the most recent of4 resultswithin the time period is included. LIPASE 13.0 13.0 - 60.0 IU/L 06/24/2024 5:51 PM MECHANICAL ENGINEERING DIRECTOR [facility] Blood BLOOD SPECIMEN / Unknown IV Start / Unknown 06/24/2024 5:27 PM MECHANICAL ENGINEERING DIRECTOR 06/24/2024 5:31 PM MECHANICAL ENGINEERING DIRECTOR Radha ARAUZ CHEMISTRY F inal Result [facility] [address] [place] [address], [place] [phone] * HEPATIC FUNCTION PANEL (06/24/2024 5:27 PM MECHANICAL ENGINEERING DIRECTOR) Only the most recent of4 resultswithin the time period is included. ALBUMIN 4.4 4.0 - 4.9 g/dL 06/24/2024 5:51 PM MECHANICAL ENGINEERING DIRECTOR [facility] PROTEIN,TOTAL 7.3 6.0 - 8.0 g/dL 06/24/2024 5:51 PM MECHANICAL ENGINEERING DIRECTOR [facility] BILIRUBIN,TOTAL 0.4 0.0 - 1.2 mg/dL 06/24/2024 5:51 PM MECHANICAL ENGINEERING DIRECTOR [facility] BILIRUBIN,DIRECT 0.2 0.0 - 0.2 mg/dL 06/24/2024 5:51 PM MECHANICAL ENGINEERING DIRECTOR [facility] BILIRUBIN,INDIRE CT 0.2 0.2 - 0.8 mg/dL 06/24/2024 5:51 PM MECHANICAL ENGINEERING DIRECTOR [facility] ALK PHOSPHATASE 64 35 - 104 IU/L 06/24/2024 5:51 PM MECHANICAL ENGINEERING DIRECTOR [facility] ALT (SGPT) 10 10 - 35 IU/L 06/24/2024 5:51 PM MECHANICAL ENGINEERING DIRECTOR [facility] AST (SGOT) 18 10 - 35 IU/L 06/24/2024 5:51 PM MECHANICAL ENGINEERING DIRECTOR [facility] Blood BLOOD SPECIMEN / Unknown IV Start / Unknown 06/24/2024 5:27 PM MECHANICAL ENGINEERING DIRECTOR 06/24/2024 5:31 PM MECHANICAL ENGINEERING DIRECTOR Radha ARAUZ CHEMISTRY F inal Result [facility] [address] [place] [address], * (ABNORMAL) BASIC METABOLIC PANEL (06/24/2024 5:27 PM MECHANICAL ENGINEERING DIRECTOR) Only the most recent of4 resultswithin the time period is included. SODIUM 141 136 - 145 mmol/L 06/24/2024 5:51 PM MECHANICAL ENGINEERING DIRECTOR [facility] POTASSIUM 3.3(L) 3.5 - 5.1 mmol/L 06/24/2024 5:51 PM MECHANICAL ENGINEERING DIRECTOR [facility] CHLORIDE 106 98 - 107 mmol/L 06/24/2024 5:51 PM MECHANICAL ENGINEERING DIRECTOR [facility] CO2,TOTAL 18(L) 22 - 29 mmol/L 06/24/2024 5:51 PM MECHANICAL ENGINEERING DIRECTOR [facility] ANION GAP 17 5 - 18 06/24/2024 5:51 PM MECHANICAL ENGINEERING DIRECTOR [facility] GLUCOSE 128(H) 70 - 99 mg/dL 06/24/2024 5:51 PM MECHANICAL ENGINEERING DIRECTOR [facility] CALCIUM 9.5 8.8 - 10.4 mg/dL 06/24/2024 5:51 PM MECHANICAL ENGINEERING DIRECTOR [facility] Comment: Reference ranges for this test were updated on 04/07/2024 to reflect our healthy population more accurately. Reference range changes are not retroactively applied to results, but previous results using the same methodology can be interpreted in the context of the new reference range. BUN 9 6 - 20 mg/dL 06/24/2024 5:51 PM MECHANICAL ENGINEERING DIRECTOR [facility] CREATININE 0.97(H) 0.50 - 0.90 mg/dL 06/24/2024 5:51 PM MECHANICAL ENGINEERING DIRECTOR [facility] BUN/CREAT RATIO 9(L) 10 - 20 5:51 PM MECHANICAL ENGINEERING DIRECTOR [facility] eGFR 82(L) >90 mL/min/1. 73m2 06/24/2024 5:51 PM MECHANICAL ENGINEERING DIRECTOR [facility] Comment:As of 2021, eG FR is calculated by the CKD-EPI creatinine equation without race adjustment. eGFR can be influenced by muscle mass, exercise, and diet. The reported eGFR is an estimation only and is only applicable if the renal function is stable. Blood BLOOD SPECIMEN / Unknown IV Start / Unknown 06/24/2024 5:27 PM MECHANICAL ENGINEERING DIRECTOR 06/24/2024 5:31 PM MECHANICAL ENGINEERING DIRECTOR Radha ARAUZ CHEMISTRY F inal Result [facility] [address] [place] [address], * TSH (05/20/2024 7:55 PM MECHANICAL ENGINEERING DIRECTOR) TSH 1.65 0.27 - 4.20 uIU/mL 05/20/2024 9:37 PM MECHANICAL ENGINEERING DIRECTOR [facility] Blood BLOOD SPECIMEN / Unknown IV Start / Unknown 05/20/2024 7:55 PM MECHANICAL ENGINEERING DIRECTOR 05/20/2024 7:58 PM MECHANICAL ENGINEERING DIRECTOR Narrative [facility] - 05/20/2024 9:37 PM MECHANICAL ENGINEERING DIRECTOR In Adults, TSH values between 5.00 and 10.00 uIU/ml do not necessarily indicate the presence of Hypothyroidism. Correlation with clinical findings such as presence of goiter and/or Thyroperoxidase (TPO) Antibody may be helpful. For more information please refer to REJI 2004; 291: 228-238. Radha ARAUZ CHEMISTRY F inal Result Performing Organization Address City/[facility]/ZIP Co de Phone Number [facility] [address] [place] [id number], * MAGNESIUM (05/20/2024 7:55 PM MECHANICAL ENGINEERING DIRECTOR) MAGNESIUM 2.0 1.6 - 2.6 mg/dL 05/20/2024 8:18 PM MECHANICAL ENGINEERING DIRECTOR [facility] Blood BLOOD SPECIMEN / Unknown IV Start / Unknown 05/20/2024 7:55 PM MECHANICAL ENGINEERING DIRECTOR 05/20/2024 7:58 PM MECHANICAL ENGINEERING DIRECTOR Radha ARAUZ CHEMISTRY F inal Result Performing Organization Address [facility] Co de Phone Number [facility] [address] [place] [id number], * RED CELL MORPHOLOGY (05/13/2024 12:29 AM MECHANICAL ENGINEERING DIRECTOR) RBC COMMENT RBC morphology appears normal RBC morphology appears normal, RBC morphology within normal limits for newborns. 05/13/2024 1:05 AM MECHANICAL ENGINEERING DIRECTOR [facility] Blood BLOOD SPECIMEN / Unknown IV Start / Unknown 05/13/2024 12:29 AM MECHANICAL ENGINEERING DIRECTOR 05/13/2024 12:39 AM MECHANICAL ENGINEERING DIRECTOR Leo Benoit MD HEMATOLOGY Final Re sult Performing Organization Address City/[facility]/ZIP Co de Phone Number [facility] [address] [place] [id number], * PLATELET ESTIMATE (05/13/2024 12:29 AM MECHANICAL ENGINEERING DIRECTOR) PLATELET ESTIMATE Adequate Adequate, No estimate 05/13/2024 1:05 AM MECHANICAL ENGINEERING DIRECTOR [facility] Blood BLOOD SPECIMEN / Unknown IV Start / Unknown 05/13/2024 12:29 AM MECHANICAL ENGINEERING DIRECTOR 05/13/2024 12:39 AM MECHANICAL ENGINEERING DIRECTOR Leo Benoit MD HEMATOLOGY Final Re sult [facility] [address] [place] [address], * (ABNORMAL) CBC W PLT NO DIFF (05/13/2024 12:29 AM MECHANICAL ENGINEERING DIRECTOR) WHITE BLOOD COUNT 13.8(H) 4.5 - 11.0 thou/cu mm 05/13/2024 1:05 AM [facility] RED BLOOD COUNT 4.27 4.00 - 5.20 mil/cu mm 05/13/2024 1:05 AM MECHANICAL ENGINEERING DIRECTOR [facility] HEMOGLOBIN 13.4 12.0 - 16.0 g/dL 05/13/2024 1:05 AM MECHANICAL ENGINEERING DIRECTOR [facility] HEMATOCRIT 37.9 33.0 - 51.0 % 05/13/2024 1:05 AM MECHANICAL ENGINEERING DIRECTOR [facility] MCV 89 80 - 100 fL 05/13/2024 1:05 AM MECHANICAL ENGINEERING DIRECTOR [facility] MCH 31.4 26.0 - 34.0 pg 05/13/2024 1:05 AM MECHANICAL ENGINEERING DIRECTOR [facility] MCHC 35.4 32.0 - 36.0 g/dL 05/13/2024 1:05 AM MECHANICAL ENGINEERING DIRECTOR [facility] RDW 12.1 11.5 - 15.5 % 05/13/2024 1:05 AM MECHANICAL ENGINEERING DIRECTOR [facility] PLATELET COUNT 228 140 - 440 thou/cu mm 05/13/2024 1:05 AM MECHANICAL ENGINEERING DIRECTOR [facility] MPV 12.3(H) 6.5 - 11.0 fL 05/13/2024 1:05 AM MECHANICAL ENGINEERING DIRECTOR [facility] NRBC 0.0 % 05/13/2024 1:05 AM MECHANICAL ENGINEERING DIRECTOR [facility] ABS NRBC 0.0 thou /cu mm 05/13/2024 1:05 AM MECHANICAL ENGINEERING DIRECTOR [facility] Blood BLOOD SPECIMEN / Unknown IV Start / Unknown 05/13/2024 12:29 AM MECHANICAL ENGINEERING DIRECTOR 05/13/2024 12:39 AM MECHANICAL ENGINEERING DIRECTOR Leo Benoit MD HEMATOLOGY Final Re sult [facility] [address] [id number], from Last 3 Months Insurance [facility] REFERRAL Member Subscriber Plan / Payer (Ef fective 2024-Present) Name:Carrie Silveira Member ID:[id number] Relation to Subscriber:Self Name:Carrie Silveira Subscriber ID:[id number] Payer ID:Not on file Group ID:Not on file Type:Not on file Address: FOR [employer] [facility] [employer] [place] [id number] Advance Directives * Full Code (Latest Code Status on File) Date Activated Date Inactivated Comments 07/01/2019 10:30 AM 07/01/2019 6:30 PM Question Answer Comments Code Status Discussion: Discussed Care Teams Tafe Lecturer Relationship Specialty Start Date End Date Clinic, No Pcp Or . PCP - General 12/21/21
--- OUTSIDE RECORDS SUMMARY | 2024-08-07 12:30 | XMS_ITS | Clinical Summary ---
Author Organization [place] Address [address] [facility] [place] [address] Care Team Providers Care Cooker Cleaner Name Role Phone [facility]- Primary Care Provider Allergies No known active allergies Medications levonorgestrel (MIRENA) 20 MCG/24HR IUD 1 each by Intrauterine route once Active albuterol (PROAIR HFA/PROVENTIL HFA/VENTOLIN HFA) 108 (90 Base) MCG/ACT inhaler Inhale 2 puffs into the lungs 2 times daily as needed for shortness of breath / dyspnea or wheezing Active acetaminophen (TYLENOL) 325 MG tabletIndicatio ns:Status post incision and drainage Take 2 tablets (650 mg) by mouth every 6 hours as needed for mild pain 60 tablet 1 Active ibuprofen (ADVIL/MOTRIN) 600 MG tabletIndicatio ns:Status post incision and drainage Take 1 tablet (600 mg) by mouth every 6 hours as needed for inflammatory pain 60 tablet 1 Active oxyCODONE (ROXICODONE) 5 MG tabletIndicatio ns:Status post incision and drainage Take 1 tablet (5 mg) by mouth every 4 hours as needed for breakthrough pain or moderate to severe pain 6 tablet 1 Active senna-docusate (SENOKOT-S/MARY COLACE) 8.6-50 MG tabletIndicatio ns:Vulvar cellulitis Take 1 tablet by mouth 2 times daily as needed for constipation 60 tablet 1 1 Active escitalopram (LEXAPRO) 20 MG tablet Take 10 mg by mouth daily Active ondansetron (ZOFRAN ODT) 4 MG ODT tab Take 1 tablet (4 mg) by mouth every 8 hours as needed for nausea 10 tablet 2 Active prochlorperazin e (COMPAZINE) 10 MG tablet Take 1 tablet (10 mg) by mouth every 6 hours as needed for nausea or vomiting. 15 tablet 4 Active metoclopramide (REGLAN) 5 MG tablet Take 1 tablet (5 mg) by mouth 4 times daily (before meals and nightly). 10 tablet 5 Active Active Problems Problem Noted Date Diagnosed Date Labial abscess 05/28/2021 Bartholin's gland abscess 05/28/2021 Overview (05/28/2021): right Vulvar cellulitis 05/28/2021 Bartholin's gland cyst 12/18/2018 Obesity with body mass index 30 or greater 12/18 Anxiety 11/17/2018 Major depressive disorder, s nelia episode, severe without psychotic features 11/17/2018 Breast hypertrophy 01/29/2018 Neck pain 01/29/2018 Encounters Date Type Department Care Team Description 06/15/2024 7:12 PM TOP CLEANER - 06/15/2024 10:30 PM TOP CLEANER Emergency [facility] Emergency Dept [facility] [address] [place] [address] Pepito Clayton MD Nausea and vomiting, unspecified vomiting type (Primary Dx); Anxiety; Left upper quadrant abdominal pain Discharge Disposition: Home or Self Care 06/15/2024 Travel from Last 3 Months Social History Tobacco Use Types Packs/Day Years Used Date Smoking Tobacco: Never Assessed Adolescent Education Answer Date Record ed Getting School Help Needed Not on file 02/23 Comments No Sex and Gender Information Value Date Recorded Sex Assigned at Not on file Legal Sex Female 4:51 PM CDT Gender Identity Not on file Sexual Orientation Not on file Last Filed Vital Signs Vital Sign Reading Time Taken Comments Blood Pressure 106/60 06/15/2024 10:20 PM TOP CLEANER Pulse 54 06/15/2024 10:20 PM TOP CLEANER Temperature 36.1 C (97 F) 06/15/2024 4:54 PM TOP CLEANER Respiratory Rate 18 06/15/2024 10:20 PM TOP CLEANER Oxygen Saturation 100% 06/15/2024 9:40 PM TOP CLEANER Inhaled Oxygen Concentration - - Weight 92.5 kg (204 lb) 06/15/2024 4:54 PM TOP CLEANER Height 167.6 cm (5' 6) 06/15/2024 4:54 PM TOP CLEANER Body Mass Index 32.93 06/15/2024 4:54 PM TOP CLEANER Plan of Treatment Health Maintenance Due Date Last Done Comments ADVANCE CARE PLANNING 1997 ANNUAL REVIEW OF HM ORDERS 1997 DEPRESSION ACTION PLAN 1997 PHQ-9 1997 YEARLY PREVENTIVE VISIT 2000 HIV SCREENING 2012 HEPATITIS C SCREENING 2015 PAP 2018 DTAP/TDAP/TD IMMUNIZATION (8 - Td or Tdap) 06/13/2019 06/13/2009, 06/13/2009, 07/31/2002, Additional history exists COVID-19 Vaccine ( season) 2024 INFLUENZA VACCINE (#1) 2024 8, 04/27/2016, 02/18/2015, Additional history exists ZOSTER IMMUNIZATION (1 of 2) 2047 HEPATITIS B IMMUNIZATION Completed 998, 1997, 1997 HPV IMMUNIZATION Completed 12/12/2009, 04/2010, 06/13/2009 MENINGITIS IMMUNIZATION Completed 09/16/19 14, 06/13/2009, 06/13/2009 CHLAMYDIA SCREENING Discontinued 05/28/2021 Pneumococcal Vaccine: Pediatrics (0 to 5 Years) and At-Risk Patients (6 to 49 Years) Aged Out No longer eligible based on patient's age to complete this topic Procedures Procedure Name Priority Date/Time Associated Diagnosis Comments EKG 12-LEAD, TRACING ONLY STAT 06/15/2024 8:16 PM TOP CLEANER CBC WITH PLATELETS & DIFFERENTIAL STAT 06/15/2024 8:05 PM TOP CLEANER EXTRA RED TOP TUBE STAT 06/15/2024 8: 05 PM TOP CLEANER EXTRA BLUE TOP TUBE STAT 06/15/2024 8 :05 PM TOP CLEANER CBC WITH PLATELETS AND DIFFERENTIAL STAT 06/15/2024 8:05 PM TOP CLEANER EXTRA TUBE STAT 06/15/2024 8:05 PM TOP CLEANER LIPASE STAT 06/15/2024 8:05 PM TOP CLEANER COMPREHENSIVE METABOLIC PANEL STAT 06/15/2024 8:05 PM TOP CLEANER CHLAMYDIA TRACHOMATIS PCR STAT 05/28/2021 2:30 AM TOP CLEANER from Last 3 Months or Most Recently Relevant to Health Maintenance Results * EKG 12 lead (06/15/2024 8:16 PM TOP CLEANER) Systolic Blood Pressure mmHg RADIOLOGY RESULTS Diastolic Blood Pressure mmHg RADIOLOGY RESULTS Ventricular Rate 53 BPM RAD IOLOGY RESULTS Atrial Rate 53 BPM RADIOLOG Y RESULTS AR Interval 144 ms RADIOLOG Y RESULTS QRS Duration 80 ms RADIOLO GY RESULTS QT 492 ms RADIOLOGY RESULTS QTc 461 ms RADIOLOGY RESULTS P [place] 22 degrees RADIOLOGY RESULTS R AXIS 11 degrees RADIOLOGY RESULTS T [place] 20 degrees RADIOLOGY RESULTS Interpretation ECG Sinus bradycardia with Premature atrial complexes in a pattern of bigeminy Nonspecific T wave abnormality Abnormal ECG No previous ECGs available Confirmed by - EMERGENCY ROOM, PHYSICIAN ([id number]), avid editor NAVEEN IZQUIERDO ([id number]) on 06/16/2024 6:41:51 AM RADIOLOGY RESULTS 06/15/2024 8:16 PM TOP CLEANER 06/16/2024 6:41 AM TOP CLEANER us Pepito Clayton MD ECG ORDERABLES Edited Resul t - Final RADIOLOGY RESULTS * Extra Red Top Tube (06/15/2024 8:05 PM TOP CLEANER) Hold Specimen JIC 06/15/2024 9:16 PM TOP CLEANER [facility] Blood VENOUS LINE / Unknown Venipuncture / Unknown 06/15/2024 8:05 PM TOP CLEANER 06/15/2024 8:16 PM TOP CLEANER us Pepito Clayton MD LAB - BLOOD ORDERABLES Final Result LABORATORY [facility] [address] Lab (1st floor, no room number) [place] [address] * Extra Blue Top Tube (06/15/2024 8:05 PM TOP CLEANER) Hold Specimen JIC 06/15/2024 9:31 PM TOP CLEANER [facility] Blood VENOUS LINE / Unknown Venipuncture / Unknown 06/15/2024 8:05 PM TOP CLEANER 06/15/2024 8:16 PM TOP CLEANER us Pepito Clayton MD LAB - BLOOD ORDERABLES Final Result LABORATORY [facility] [address] Lab (1st floor, no room number) [place] [address] * (ABNORMAL) CBC with platelets and differential (06/15/2024 8:05 PM TOP CLEANER) WBC Count 18.3(H) 4.0 - 11.0 10e3/uL 06/15/2024 8:20 PM TOP CLEANER [facility] RBC Count 4.25 3.80 - 5.20 10e6/uL 06/15/2024 8:20 PM TOP CLEANER [facility] Hemoglobin 13.4 11.7 - 15.7 g/dL 06/15/2024 8:20 PM TOP CLEANER [facility] Hematocrit 38.5 35.0 - 47.0 % 06/15/2024 8:20 PM TOP CLEANER [facility] MCV 91 78 - 100 fL 06/15/2024 8:20 PM TOP CLEANER [facility] MCH 31.5 26.5 - 33.0 pg 06/15/2024 8:20 PM TOP CLEANER [facility] MCHC 34.8 31.5 - 36.5 g/dL 06/15/2024 8:20 PM TOP CLEANER [facility] RDW 12.6 10.0 - 15.0 % 06/15/2024 8:20 PM TOP CLEANER [facility] Platelet Count 218 150 - 450 10e3/uL 06/15/2024 8:20 PM TOP CLEANER [facility] % Neutrophils 91 % 06/15/2024 8:20 PM TOP CLEANER [facility] % Lymphocytes 5 % 06/15/2024 8:20 PM TOP CLEANER [facility] % Monocytes 3 % 06/15/2024 8:20 PM TOP CLEANER [facility] % Eosinophils 0 % 06/15/2024 8:20 PM TOP CLEANER [facility] % Basophils 0 % 06/15/2024 8:20 PM TOP CLEANER [facility] % Immature Granulocytes 0 % 06/15/2024 8:20 PM TOP CLEANER [facility] NRBCs per 100 WBC 0 <1 /100 025 8:20 PM TOP CLEANER [facility] Absolute Neutrophils 16.7(H) 1.6 - 8.3 10e3/uL 06/15/2024 8:20 PM TOP CLEANER [facility] Absolute Lymphocytes 0.9 0.8 - 5.3 10e3/uL 06/15/2024 8:20 PM TOP CLEANER [facility] Absolute Monocytes 0.6 0.0 - 1.3 10e3/uL 06/15/2024 8:20 PM TOP CLEANER [facility] Absolute Eosinophils 0.0 0.0 - 0.7 10e3/uL 06/15/2024 8:20 PM TOP CLEANER [facility] Absolute Basophils 0.0 0.0 - 0.2 10e3/uL 06/15/2024 8:20 PM TOP CLEANER [facility] Absolute Immature Granulocytes 0.1 <=0.4 10e3/uL 06/15/2024 8:20 PM TOP CLEANER [facility] Absolute NRBCs 0.0 10e3/uL 06/15/2024 8:20 PM TOP CLEANER [facility] Blood VENOUS LINE / Unknown Venipuncture / Unknown 06/15/2024 8:05 PM TOP CLEANER 06/15/2024 8:16 PM TOP CLEANER us Pepito Clayton MD LAB - BLOOD ORDERABLES Final Result [facility] LABORATORY [facility] [address] Lab (1st floor, no room number) [place] [address], [facility] * (ABNORMAL) Lipase (06/15/2024 8:05 PM TOP CLEANER) Lipase 10(L) 13 - 60 U/L 06/15/2024 9:14 PM [facility] Blood VENOUS LINE / Unknown Venipuncture / Unknown 06/15/2024 8:05 PM TOP CLEANER 06/15/2024 8:16 PM TOP CLEANER Pepito Clayton MD LAB - BLOOD ORDERABLES Final Result LABORATORY [facility] [address] [facility] Lab (1st floor, no room number) [place] [address], [facility] * (ABNORMAL) Comprehensive metabolic panel (06/15/2024 8:05 PM TOP CLEANER) Sodium 140 135 - 145 mmol/L 06/15/2024 9:14 PM [facility] Potassium 3.8 3.4 - 5.3 mmol/L 06/15/2024 9:14 PM [facility] Carbon Dioxide (CO2) 17(L) 22 - 29 mmol/L 06/15/2024 9:14 PM [facility] Anion Gap 19(H) 7 - 15 mmol/L 06/15/2024 9:14 PM [facility] Urea Nitrogen 11.2 6.0 - 20.0 mg/dL 06/15/2024 9:14 PM [facility] Creatinine 0.90 0.51 - 0.95 mg/dL 06/15/2024 9:14 PM [facility] GFR Estimate 89 >60 mL/min/1.7 3m2 06/15/2024 9:14 PM [facility] Comment:eGFR calculated usin 2020 CKD-EPI equation. Calcium 9.6 8.8 - 10.4 mg/dL 06/15/2024 9:14 PM [facility] Comment:Reference intervals for this test were updated on 12/17/2023 to reflect our healthy population more accurately. There may be differences in the flagging of prior results with similar values performed with this method. Those prior results can be interpreted in the context of the updated reference intervals. Chloride 104 98 - 107 mmol/L 06/15/2024 9:14 PM TOP CLEANER LABORATORY Glucose 147(H) 70 - 99 mg/dL 06/15/2024 9:14 PM TOP CLEANER LABORATORY Alkaline Phosphatase 74 40 - 150 U/L 06/15/2024 9:14 PM TOP CLEANER LABORATORY AST 20 0 - 45 U/L 06/15/2024 9:14 PM TOP CLEANER LABORATORY ALT 18 0 - 50 U/L 06/15/2024 9:14 PM TOP CLEANER LABORATORY Protein Total 7.4 6.4 - 8.3 g/dL 06/15/2024 9:14 PM TOP CLEANER LABORATORY Albumin 4.7 3.5 - 5.2 g/dL 06/15/2024 9:14 PM TOP CLEANER LABORATORY Bilirubin Total 0.8 <=1.2 mg/dL 06/15/2024 9:14 PM TOP CLEANER LABORATORY Blood VENOUS LINE / Unknown Venipuncture / Unknown 06/15/2024 8:05 PM TOP CLEANER 06/15/2024 8:16 PM TOP CLEANER Pepito Clayton MD LAB - BLOOD ORDERABLES Final Result LABORATORY [facility] [address] [facility] Lab (1st floor, no room number) [place] [address] * Chlamydia trachomatis PCR (05/28/2021 2:30 AM TOP CLEANER) Chlamydia trachomatis Negative Negative 05/28/2021 11:38 AM TOP CLEANER [facility] Comment:A negative result by balance wheel screw hole tapper mediated amplification does not preclude the presence of C. trachomatis infection because results are dependent on proper and adequate collection, absence of inhibitors and sufficient rRNA to be detected. Swab CERVIX UTERI STRUCTURE / Unknown Non-blood Collection / Unknown 05/28/2021 2:30 AM TOP CLEANER 05/28/2021 5:33 AM TOP CLEANER Samina Rojo DO LAB - MICRO GENERAL ORDERA BLES Final Result [facility] Infectious Diseases Diagnostic Lab (IDDL) [address] [facility] [place] [address], [facility] [phone] from Last 3 Months or Most Recently Relevant to Health Maintenance Insurance [place] Advance Directives For more information, please contact: [phone] * Full Code (Latest Code Status on File) Date Activated Date Inactivated Comments 05/28/2021 11:22 AM 05/29/2021 6:35 PM All basic and advanced life-sustaining interventions are performed as appropriate Question Answer Comments Code status determined by: Discussion with radha nt/ legal decision maker Care Teams Cooker Cleaner Relationship Specialty Start Date End Date [facility]- [address] [place] [address] PCP - General 04/07/24
--- OUTSIDE RECORDS SUMMARY | 2024-08-07 12:30 | XMS_ITS | Clinical Summary ---
Author Organization [facility] Address [address] [place] [address] Care Team Providers Care Assessment Manager Name Role Phone Deanna Santana PA-C Primary Care Provider [phone] Source Comments You are receiving this document as you are listed as the primary care provider,follow-up provider, or the patient has been referred to you for consultation.This is in compliance with the Medicare and[facility] EHR Incentive Program,which states Providers who transition their patient to another setting of careor provider of care or refers their patient to another provider of care shouldprovide summary care record for each transition of care or referral. [facility] Allergies No known active allergies Medications levonorgestrel (MIRENA) 20 MCG/24HR IUD by Intrauterine route. Active ondansetron (ZOFRAN-ODT) 4 MG disintegrating tabletIndications: Nausea and vomiting, unspecified vomiting type 1-2 tabs po q8 hrs prn nausea/vomiting. 20 Tablet 3 03/23/20 22 Active escitalopram oxalate (LEXAPRO) 20 MG tablet Take 1 Tablet (20 mg) by mouth daily. 90 Tablet 04/17/20 22 Active Active Problems Problem Noted Date Diagnosed Date Labial abscess 05/28/2021 Overview (04/09/2022): right Nausea 02/06/2021 Bartholin's gland cyst 12/18/2018 Obesity with body mass index 30 or greater 12/18 Anxiety 11/17/2018 Major depressive disorder, s nelia episode, severe without psychotic features 11/17/2018 Neck pain 01/29/2018 Breast hypertrophy 01/29/2018 Resolved Problems Problem Noted Date Diagnosed Date Resolved Date Vulvar cellulitis 05/28/2021 10/16/2022 Immunizations Immunization Administration Dates Next Due 4vHPV (Gardasil) 12/12/2009,08/11/2009, 0 DTaP 06/13/2009, 3,09/15/1998,12/16,1997,1997 Flu Vac (3+ yrs) 03/24/2007 Fluzone Qiv Multidose Vial 0 .25 (6-35 Mos) 02/18/2015 HepA Ped/Adol (1-18 yrs) 09/15/2013,08/29/2012 HepB Ped/Adol (0-18 yrs) 1997,1997,0 1997 Hib (ActHIB) 09/15/1998, 8,1997,07/21 IPV (Polio) 07/31/2002, 0,1997,07/21 Influenza IIV4 (Quadrivalent ) 0.5mL (57028) 04/29/2018,04/27/2016 Influenza, Unspecified Formulation 04/27/2016, MCV4 (Menactra) 09/15/2013,06/13/2009 MMR 07/31/2002,09/29/1998 Meningococcal MCV4, Unspecif ied Formulation 06/13/2009 Tdap 06/13/2009 Varicella 06/13/2009,06/27/1998 Social History Tobacco Use Types Packs/Day Years Used Date Smoking Tobacco: Never Passive Smoke Exposure: Never Smokeless Tobacco: Never Tobacco Cessation:Counseling Given: Not Answered Alcohol Use Standard Drinks/Week Comments Not Currently 1 (1 standard drink = 0.6 oz pur e alcohol) PHQ-2 Answer Date Recorded PHQ-2 Score 4 05/25/2021 Comments No Sex and Gender Information Value Date Recorded Sex Assigned at Female 06/05/2021 8:52 PM [employer]ERY Legal Sex Female 8:42 AM [employer] Gender Identity Female 06/05/2021 8:52 PM [employer] Sexual Orientation Straight 06/05/2021 8: 52 PM [employer] Last Filed Vital Signs Vital Sign Reading Time Taken Comments Blood Pressure 99/53 04/25/2022 1:43 PM [employer]ERY Pulse 78 04/25/2022 1:43 PM [employer] Temperature 36.2 C (97.1 F) 04/25/2022 1:13 PM [employer]ERY Respiratory Rate 18 04/25/2022 1:43 PM [employer] Oxygen Saturation 100% 04/25/2022 1: 43 PM [employer] Inhaled Oxygen Concentration - - Weight 101.2 kg (223 lb 1.7 oz) 04/25/2022 9:58 AM [employer] Height 165.1 cm (5' 5) 04/25/2022 9:58 AM [employer] Body Mass Index 37.13 04/25/2022 9:58 AM [employer] Plan of Treatment Health Maintenance Due Date Last Done Comments Hep C Screening (Preventive Services) 1997 HIV Screening (Preventive Services) 2013 Adult Preventive Visit 2015 DTaP/Tdap/Td (8 - Tdap) 06/13/2019 06/13/19 10, 06/13/2009, 07/31/2002, Additional history exists Cervical Cancer Screening 02/24/20232019, 02/25/2020 (Completed) COVID-19 Vaccine ( season) 2024 Influenza (#1) 2024 04/29/2018, 04/04, 04/27/2016, Additional history exists Zoster/Shingles (1 of 2) 2047 HepB Completed 1997, 07/04, 1997 Hib Completed 09/15/1998, 12/01, 1997, Additional history exists IPV (Polio) Completed 07/31/2002, 06/04, 1997, Additional history exists Varicella Completed 06/13/2009, 06/27/1998 HPV Vaccine Completed 12/12/2009, 08/01, 06/13/2009 HepA Completed 09/15/2013, 08/29/2012 MCV4 Completed 09/15/2013, 06/03, 06/13/2009 Chlamydia Discontinued 04/17/2022, 12/11/2020, 01/29/2018 (Completed) Meningococcal B Aged Out No longer el igible based on patient's age to complete this topic Pneumococcal Aged Out No longer eligi ble based on patient's age to complete this topic Procedures Procedure Name Priority Date/Time Associated Diagnosis Comments CHLAMYDIA & GC (14 YEARS & OLDER) Routine 04/17/2022 4:13 PM [employer] Vaginal discharge from Last 3 Months or Most Recently Relevant to Health Maintenance Results * Chlamydia & GC (14 Years and Older) (04/17/2022 4:13 PM [employer]) Chlamydia Trachomatis STD Not Detected Not Detected 04/18/2022 5:33 AM [employer] [facility] N. gonorrhoeae STD Not Detected Not Detected 04/18/2022 5:33 AM [employer] [facility] Swab STD SPECIMEN FROM VAGINA / Unknown Non-blood Collection / Unknown 04/17/2022 4:13 PM [employer] 04/17/2022 4:37 PM [employer] [facility] - 04/18/2022 5:33 AM [employer] Test performed by Incendiary Powder Mixer Mediated Amplification (TMA). Gisselle Hoyos MD LAB_1 Final Result [facility] [address] [place] [id number], [facility] [phone] from Last 3 Months or Most Recently Relevant to Health Maintenance Insurance [place] [id number] Advance Directives * Full Code (Latest Code Status on File) Date Activated Date Inactivated Comments 04/25/2022 9:57 AM 04/25/2022 4:18 PM Care Teams Assessment Manager Relationship Specialty Start Date End Date Deanna Santana [facility]AM[facility]quis[facility] [address] [place] [address] PCP - General Physician Firmware Test Engineer 03/23/22
--- NOTE | 2024-08-07 16:04 | ED.GENADULT ---
HPI - General Adult General Date Seen: 08/07/24 Chief complaint: Headache/Migraine Stated complaint: Headache Time Seen by Provider: 08/07/24 15:59 History of Present Illness HPI narrative: 29-year-old female who is sent to the ER today from her PCP clinic for evaluation of headache. Past medical history includes anxiety, depression, panic attacks, bipolar disorder, OCD, migraine headaches, IUD. I reviewed her clinic note from today but is not complete so there is no HPI information yet. It looks like she received Imitrex, Toradol, Zofran in clinic. CBC showed a white blood cell count of 3.37, hemoglobin 12.7, platelet count 149. BUN was 7, glucose 88, creatinine 1.0. Sodium 141, potassium 3.7, chloride 107, bicarb 22. History is obtained mostly from the patient but also supplemented by her boyfriend, who accompanies her to the ER. She does have history of anxiety and panic attacks and per her boyfriend's words she was a ?frequent Flyer? to the ERs over the past year because of panic attacks and nausea. Her PCP, Dr. Pearson, give her a p.r.n. prescription for lorazepam and also started her on daily lamotrigine in June to help with mood stabilization. She says since then her mood is been a lot more stable. She also has a history migraine headaches She says she has been having headache for over a month now, it started in early July in just has not. Since then. When I ask, she confirms that it has been present every waking minute of every day since early July. Sometimes it is in the front, sometimes it is in the back. Sometimes it gets better and worse. She does not note a clear pattern. Along with the headache she has had a lot of nausea but not much vomiting. She has been light sensitive. In particular for the past couple of days she has had increasing light sensitivity. She does not have any focal numbness or tingling or weakness in her arms or legs. She notes the headache is worse when she moves her eyes and more so when she moves her head from side to side. For instance, when she was lying in bed she turned her head to look her boyfriend the other day and experience a lot of pain in her back of her head. She has also had some neck stiffness for the past several days. Also, both the patient and boyfriend had a febrile illness that began 6 days ago and ended 3 days ago. They both had fever, without as well as some mild cough and URI symptoms. They presume, but were not tested for, that they probably had a virus like influenza. She was seen in the ER and he stings about 2 weeks ago and had a CT scan that was normal for this headache. She had follow-up with her PCP today and was sent here to the ER after failing intramuscular Toradol and Imitrex Related Data Home Medications ?Medication ?Instructions ?Recorded ?Confirmed copper 380 square mm intrauterine 1 device intrauterine ONCE 06/18/24 08/07/24 device (ParaGard T 380A) metoclopramide HCl 10 mg tablet 10 mg PO Q6H PRN nausea/vomiting 06/24/24 08/07/24 Previous Rx's ?Medication ?Instructions ?Recorded lamotrigine 100 mg tablet 100 mg PO BID #60 tabs 06/18/24 lorazepam 1 mg tablet (Ativan) 1 mg PO BID PRN anxiety #30 tabs 06/18/24 prochlorperazine maleate 10 mg 10 mg PO Q6H PRN nausea/vomiting 06/18/24 tablet #60 tabs Allergies Allergy/AdvReac Type Severity Reaction Status Date / Time No Known Drug Allergies Allergy Verified 08/07/24 19:01 [facility] Medical History (Updated 08/07/24 @ 23:04 by Johnnie Hodge MD) Infected cyst of Bartholin's gland duct ?N75.0 - Cyst of Bartholin's gland (ICD-10) IUD (intrauterine device) in place ?Z97.5 - Presence of (intrauterine) contraceptive device (ICD-10) History of migraine ?Z86.69 - Personal history of other diseases of the nervous system and sense organs (ICD-10) OCD (obsessive compulsive disorder) ?F42.9 - Obsessive-compulsive disorder, unspecified (ICD-10) Binge eating ?R63.2 - Polyphagia (ICD-10) Bipolar II disorder ?F31.81 - Bipolar II disorder (ICD-10) Panic attacks ?F41.0 - Panic disorder [episodic paroxysmal anxiety] (ICD-10) Depression with anxiety ?F41.8 - Other specified anxiety disorders (ICD-10) Anxiety ?F41.9 - Anxiety disorder, unspecified (ICD-10) Surgical History Bartholin's duct cyst (2020) ?N75.0 - Cyst of Bartholin's gland (ICD-10) Family History (Updated 06/27/24 @ 12:34 by Shirley Quigley MD) Other Alcohol dependence Social History (Updated 06/24/24 @ 08:02 by Crissy Polanco ~ CTA) Narrative: Single Unemployed Some college No children Exercises 7 days a week yoga/walk/run Never smoked What is your current living situation?: I presently have a place to live Problems where you live: no known problems In the past 12 months, utilities in danger of being shut off: no In past 12 months, lack of transportation kept you from medical appts, meetings, work, or getting things needed for daily living: no In the past 12 mos, have been you worried that your food would run out before you had money to buy more?: sometimes true In the past 12 mos, the food you bought just didn't last and you didn't have money to buy more?: never true Highest level of school completed/degree received: some college, no degree Smoking Status: Never smoker How often do you have a drink containing alcohol: monthly or less AUDIT-C Alcohol total score: 1 Non-prescribed substance use: denies use Caffeine: Yes How often does anyone, including family, friends and others, physically hurt you: never How often does anyone, including family, friends and others, insult or talk down to you: never How often does anyone, including family, friends and others, threaten you with harm: never How often does anyone, including family, friends and others, scream or curse at you: never Do you think of yourself as: straight/heterosexual Gender Identity: female Are you currently sexually active: Yes In the past 12 months, how many sex partners have you had: one Are you using contraception or practicing any form of control: Yes (IUD) service: No Health Related Social Needs: food insecurity (Z59.41) Exam Narrative: Exam Narrative: Constitutional: Appears well-developed and well-nourished. Alert. Photophobic and has her head covered with her shirt. Conversant. She is able to answer questions and is polite. Somewhat short and nondescriptive answers. Boyfriend supplements her history HENT: Head: Atraumatic. No depressed skull fracture, Raccoon Eyes, Dukes's sign, or hemotympanum. Face normal. TMs normal Nose: Nose normal. Mouth/Throat: Oral mucosa is clear and moist. no trismus. Pharynx normal. Tonsils symmetric. No tonsillar enlargement, erythema, or exudate. Eyes: Conjunctivae normal. EOM normal. Pupils equal, round, and reactive to light. No scleral icterus. Neck: She complains of headache pain when she tries to twist her neck. Does not truly have a ?stiff? neck. Neck supple. No tracheal deviation present. Cardiovascular: Normal rate, regular rhythm. No gallop. No friction rub. No murmur heard. Symmetric radial artery pulses Pulmonary/Chest: Effort normal. No stridor. No respiratory distress. No wheezes. No rales. No rhonchi . Abdominal: Soft. Bowel sounds normal. No distension. No mass. No tenderness. No rebound. No guarding. Musculoskeletal: RUE: Normal range of motion. No tenderness. No deformity LUE: Normal range of motion. No tenderness. No deformity RLE: Normal range of motion. No edema. No tenderness. No deformity LLE: Normal range of motion. No edema. No tenderness. No deformity Lymph: No cervical adenopathy. Neurological: Mental status normal. Attention normal. Alert and oriented x3. GCS 15. Memory normal. Speech fluent. Cognition normal. Cranial Nerves intact II-XII except I did not formally test gag or visual acuity. EOMI. Palate elevates symmetrically and tongue protrudes in the midline. Strength: 5/5 trapezius on the right and left 5/5 deltoid on the right and left 5/5 biceps on the right and left 5/5 triceps on the right and left 5/5 ed educational aide on the right and left 5/5 thumb opposition on the right and left 5/5 finger abduction on the right and left 5/5 hip flexors (L3) on the right and left 5/5 quadriceps (L4) on the right and left 5/5 tibialis anterior on the right and left 5/5 EHL (L5) on the right and left 5/5 gastrocnemius (S1) on the right and left 5/5 hamstring on the right and left Sensation intact to light touch in both upper extremities (C4-T1) Sensation intact to light touch in Both lower extremities (L4-S1). Negative Kernig's and Brudzinski sign Finger to nose and coordination normal. Gait not assessed due to headache pain and photophobia Skin: Skin is warm and dry. No rash noted. No pallor. Normal capillary refill. Psychiatric: Normal mood. Normal affect. Const: Vital Signs, click to edit/add: Vital Signs - 24 hr 08/07/24 13:07 08/07/24 13:16 08/07/24 16:03 Temperature 97.9 F 99.3 F Pulse Rate [Pulse Oximeter] 94 61 56 L Respiratory Rate 20 20 16 Blood Pressure [Ri ght Upper Arm] 126/69 121/80 116/88 Pulse Oximetry 97 98 100 Oxygen Delivery Me thod Room Air Room Air Room Air 08/07/24 17:16 08/07/24 19:29 08/07/24 22:08 Temperature Pulse Rate [Pulse Oximeter] 64 48 L 48 L Respiratory Rate 16 16 14 Blood Pressure [Ri ght Upper Arm] 118/78 111/76 94/63 Pulse Oximetry 99 99 98 Oxygen Delivery Me thod Room Air Room Air 08/07/24 23:12 Temperature Pulse Rate [Pulse Oximeter] Respiratory Rate Blood Pressure [Ri ght Upper Arm] 102/66 Pulse Oximetry Oxygen Delivery Me thod Course Course ED Course: Recheck-headache down from an 8/10 down to a 4/10. Sleeping after meds. Does want some more medication, ordered Zyprexa [address] imaging. Reevaluation(s) Reevaluation #1: Reviewed records from her visit to [facility]. Visit occurred on 07/23/2024. Per ER note The the patient presents today due to approximately 2 weeks of headache. She reports having chronic posterior neck pain and spasms for weeks or months, but that about 2 weeks ago she had gradual onset of pain in her occiput and bifrontal forehead. This reached maximal severity over several hours. There is associated photophobia, phonophobia, and bilateral blurry vision, all of which she is experienced previously with what she feels her migraine headaches. What is unusual, however, is that her headache is lasted for 2 weeks. It waxes and wanes in severity, but has not fully resolved. The pain does not seem to be worse at any particular time of day. She has taken ibuprofen and Excedrin at times without much relief, and took some DayQuil this morning hoping it would help. She continues to have posterior neck spasms and tightness. She denies having nausea or vomiting today, and denies fever, vision loss, focal weakness or numbness, falls or injuries, or other new concerns. No prior history of [facility] imaging by her recollection. CT scan head, noncontrast FINDINGS: INTRACRANIAL CONTENTS: No intracranial hemorrhage, extraaxial collection, or mass effect. No CT evidence of acute infarct. Normal parenchymal attenuation. Normal ventricles and sulci. ? VISUALIZED ORBITS/SINUSES/MASTOIDS: No intraorbital abnormality. Mild mucosal thickening scattered about the paranasal sinuses. No middle ear or mastoid effusion. ? BONES/SOFT TISSUES: No acute abnormality. ? IMPRESSION: ? No acute intracranial process. Reevaluation #2: Recheck-headache improved after Zyprexa. Verbal consent for lumbar puncture obtained from the patient and from her boyfriend. They declined the need to have phone conversation with any other family members. Reevaluation #3: LP was completed, see procedure note. CSF looks clear by visual inspection. Additional Reevaluation(s): Recheck-CSF is normal with 1 white cell and 0 red cells per high-power field based on cell count obtained from tube 3. Vital Signs Vital signs: Initial Vital Signs Temperature 97.9 F 08/07/24 13:07 Temperature Source Temporal Artery Scan 08/07/24 13:07 Pulse Rate 94 08/07/24 13:07 Respiratory Rate 20 08/07/24 13:07 Blood Pressure 126/69 08/07/24 13:07 Blood Pressure Mean 88 08/07/24 13:07 Blood Pressure Position Sitting 08/07/24 13:07 Pulse Oximetry 97 08/07/24 13:07 Oxygen Delivery Method Room Air 08/07/24 13:07 Vital Signs Temperature 97.9 F 08/07/24 13:07 Pulse Rate 94 08/07/24 13:07 Respiratory Rate 20 08/07/24 13:07 Blood Pressure 126/69 08/07/24 13:07 Pulse Oximetry 97 08/07/24 13:07 Oxygen Delivery Method Room Air 08/07/24 13:07 Temperature 99.3 F 08/07/24 13:16 Pulse Rate 48 L 08/07/24 22:08 Respiratory Rate 14 08/07/24 22:08 Blood Pressure 102/66 08/07/24 23:12 Pulse Oximetry 98 08/07/24 22:08 Oxygen Delivery Method Room Air 08/07/24 22:08 Medications Administered Medications: Discontinued Medications Generic Name Dose Route Start Last Admin Trade Name Mekhi PRN Reason Stop Dose Admin Diphenhydramine HCl 12.5 mg 08/07/24 16:38 08/07/24 17:09 Diphenhydramine 50 Mg/Ml Inj IVP 08/07/24 16:39 12.5 mg ONCE ONE Administration Sodium Chloride 1,000 mls @ 1,000 mls/hr 08/07/24 16:45 08/07/24 18:08 0.9 % Sodium Chloride 1000 Ml IV 08/07/24 17:44 Infused .Q1H INDIRA Infusion Ketorolac Tromethamine 15 mg 08/07/24 16:38 08/07/24 17:06 Ketorolac 15 Mg/Ml Inj IVP 08/07/24 16:39 15 mg ONCE ONE Administration Metoclopramide HCl 10 mg 08/07/24 16:38 08/07/24 17:11 Metoclopramide Hcl 5 Mg/Ml Inj IVP 08/07/24 16:39 10 mg ONCE ONE Administration Olanzapine 5 mg 08/07/24 18:04 08/07/24 18:43 Olanzapine 5 Mg/Ml Inj IVP 08/07/24 18:05 5 mg ONCE ONE Administration Medical Decision Making [facility] Narrative Medical decision making narrative: Pleasant 29-year-old female sent to the ER today from clinic with concern for a fairly severe headache ongoing for the past couple weeks, getting worse for the past couple of days along with neck stiffness. She had been started on Lamictal for mood stabilization about 2 months ago and this headache started about 1 month ago but has been getting worse. Consider potential side effect of that medication, including aseptic meningitis. Further differential would include vascular phenomenon such as subarachnoid, as well as cervical artery dissection. Headache was not abrupt in onset. However she has been having progressively worsening posterior neck pain. We did obtain CT angiogram and fortunately CTA is negative for any acute findings. Head CT scan today shows no intracranial hemorrhage or no obvious mass effect but does show potential empty sella and potentially signs of idiopathic intracranial hypertension. Lumbar puncture was performed and intracranial pressure was measured in the lateral decubitus position to be normal at 8 cm of water. At this point I do not have any further evidence for I IH. Would not admit for CSF management or start on a CTs all might at this time CSF is also negative for signs of bacterial or aseptic meningitis at this point. Other laboratory workup is reassuring. She is not . Carboxyhemoglobin level is low. Sed rate and CRP are normal. She already had normal CBC and BMP in clinic today. Headache was improved after migraine cocktail with Toradol, Reglan, Benadryl. We also administered Zyprexa with further improvement. She feels comfortable discharging home with her boyfriend at this time. Recommended the for close outpatient follow-up with PCP. Would recommend outpatient MRI for further evaluation of the pineal gland cyst. Discussed precautions for return to the ER and the risk of post spinal headache. Questions answered to the best my ability. Lab Data Labs: Lab Results 08/07/24 08/07/24 Range/Units 16:53 21:05 ESR 6 (2-20) mm/hr Carboxyhemoglobin 3.9 (0.0-5.0) % C-Reactive Protein < 0.5 L (0.5-1.0) mg/dL HCG, Qual Negative (Negative) CSF Volume 2.0 (0-6) mL CSF Appearance Clear (Clear) CSF Color Colorless (Colorless) CSF WBC 1 Cells/uL CSF RBC 0 Cells/uL CSF Mononuclear Cells 0 % CSF Polynuclear WBCs 100 % CSF Glucose 66 (40-70) mg/dL CSF Total Protein 171 H (15-45) mg/dL Imaging Data CT scan - head: Attestation: I have reviewed the pertinent imaging results. Radiologist's impression: Impression: 1. No acute intracranial abnormality. 2. Partially empty sella. While this can represent a normal variant, it also can be seen in the setting of idiopathic intracranial hypertension in the appropriate clinical setting. 3. 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 Consider further evaluation with MRI. CTA Head and Neck: Attestation: I have reviewed the pertinent imaging results. Radiologist's impression: Preliminary Report: 1. No evidence of proximal artery occlusion, high grade stenosis, aneurysm, dissection, or vascular malformation. 2. 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 Right VA terminates as the PICA, normal variant. Final report per neurointerventional radiology service. Read by:?Edis Chavez MD @08/07/2024 7:21:24 PM Discharge Plan Discharge Clinical Impression: Headache Patient Disposition: Home, Self-Care Condition: Stable Instructions: Acute Headache (DC) Additional Instructions: I am glad your headache is better. We have given you medications that make you drowsy. Do not drive or operate machinery tonight He has we discussed, you can use Tylenol or ibuprofen if needed for headache. I would suggest that you temporarily discontinue Lamictal because this medication might be contributing to your headache. It is Also very important for you to follow-up with her regular doctor to discuss this med change and come up with an alternative. Please follow-up with your regular doctor in clinic within the next 3-5 days. Ask your regular doctor 2 to arrange an outpatient MRI of your brain. The if you have worsening headache, or headache that gets worse with sitting up, or any new symptoms such as fever, please come back to the ER right away to be rechecked. Prescriptions: No Action ParaGard T 380A 380 square mm intrauterine device 1 device intrauterine ONCE Rx Instructions: as a single dose prochlorperazine maleate 10 mg tablet 10 mg PO Q6H PRN (Reason: nausea/vomiting) Qty: 60 1RF lorazepam [Ativan] 1 mg tablet 1 mg PO BID PRN (Reason: anxiety) Qty: 30 1RF lamotrigine 100 mg tablet 100 mg PO BID Qty: 60 1RF metoclopramide HCl 10 mg tablet 10 mg PO Q6H PRN (Reason: nausea/vomiting) Follow Up/Referrals: Kam Tuttle MD [Primary Care Provider] - Stand Alone Forms: [facility] Info Instructions Procedures Lumbar Puncture Pre procedure diagnosis: Headache, neck pain, evaluate for intracranial hypertension or meningitis Verification/time out: correct patient, correct site and correct procedure Assistants, if any: Umm Reyes Reason for procedure: diagnostic Patient Position: upright Local Anesthetic: lidocaine 1% and with epi Amount of anesthesia used (mL): 10 Interspace Used: L3-L4 Number of attempts: 4 Opening Pressure (cmH20): 8 Fluid Initially Obtained: clear Estimated blood loss (if any): none Additional Comments: In order to obtain opening pressure we attempted the LP in the left lateral decubitus position. I identified the L2 3-4 interspace by palpation of the iliac crest. After sterile prep and local anesthesia we attempted using a 22 gauge needle. I was not able to get past the spinous processes. Using sterile technique we repositioned the patient's to the sitting position. I re-identified landmarks. We were able to enter the L3-4 interspace on our 1st attempt and we obtain clear colorless CSF. Patient was then repositioned back into the left lateral decubitus position with attention not to displace the LP needle. Once the patient was in the lateral decubitus position we were able to measure opening pressure-8 cm of water. 4 mL of CSF were obtained into test tubes and sent to lab for analysis. No other complications were noted. Patient was resting in bed for an hour after the LP. Headache remain improved. Counseled about risks of post spinal headache.
[2024-08-07 16:56] LABS: Carboxyhemoglobin* 3.9 % (0.0-5.0)
--- OUTSIDE RECORDS SUMMARY | 2024-08-07 17:03 | XMS_ITS | Clinical Summary ---
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 Active ondansetron (ZOFRAN ODT) 4 mg disintegrating tabletIndications:N ausea and vomiting, unspecified vomiting type Place 1 or 2 Tablets (4-8 mg) on the tongue every 8 hours if needed for Nausea/Vomit ing. 30 Tablet 06/19/2022 10:04 AM UPPER CUTTER OUT 3 Active sucralfate (CARAFATE) 1 gram tabletIndications:G astritis, presence of bleeding unspecified, unspecified chronicity, unspecified gastritis type Take 1 Tablet (1 g) by mouth four times daily before meals and at bedtime. 120 Tablet 06/19/2022 10:04 AM UPPER CUTTER OUT 3 Active FLUoxetine (PROzac) 20 mg capsuleIndications: [...] Department Care Team Description 08/06/2024 Nurse Triage [facility] Nurse Triage Clinic, No Pcp Or Headache 07/23/2024 12:38 PM UPPER CUTTER OUT - 07/23/2024 4:48 PM UPPER CUTTER OUT Emergency [address] [address] Edis Arce MD Dahl, Bartolo Freeman MD Status migrainosus (Primary Dx); Cervicogenic headache Discharge Disposition: Home Self Care 07/23/2024 Travel 07/23/2024 Nurse Triage [place] [id number] [place] [phone] Clinic, No Pcp Or Headache 06/24/2024 5:04 PM UPPER CUTTER OUT - 06/24/2024 9:43 PM UPPER CUTTER OUT Emergency [address] [address] Radha Muniz PA Haug, Alec Joseph, MD Nausea and vomiting, unspecified vomiting type (Primary Dx); Chronic abdominal pain; Anxiety Discharge Disposition: Home Self Care 06/24/2024 Travel 06/08/2024 Nurse Triage [facility] Central[facility] Nurse Triage Clinic, No Pcp Or Arrhythmia 06/04/2024 7:29 PM UPPER CUTTER OUT - 06/04/2024 9:39 PM [facility] Emergency [address] [address] Fouzia Robbins PA Nausea and vomiting, unspecified vomiting type (Primary Dx); Epigastric pain Discharge Disposition: Home Self Care 06/04/2024 Travel 05/20/2024 7:19 PM UPPER CUTTER OUT - 05/20/2024 10:[address] [address] Radha Muniz PA Epigastric pain (Primary Dx); Nausea and vomiting, unspecified vomiting type; Anxiety Discharge Disposition: Home Self Care 05/20/2024 Travel 05/13/2024 12:03 AM UPPER CUTTER OUT - 05/13/2024 1:[address] [address] Leo Benoit MD Nausea and vomiting, unspecified [...] on file Legal Sex Female 5:52 AM UPPER CUTTER OUT Gender Identity Not on file Sexual Orientation Not on file Obstetrics History Para Term AB IAB SAB Ectopic Multiple Livin g Live Births 0 0 0 0 0 0 0 0 0 0 0 Last Filed Vital Signs Vital Sign Reading Time Taken Comments Blood Pressure 109/62 07/23/2024 3:53 PM UPPER CUTTER OUT Pulse 60 07/23/2024 3:53 PM UPPER CUTTER OUT Temperature 36.7 C (98 F) 07/23/2024 12:45 PM UPPER CUTTER OUT Respiratory Rate 16 07/23/2024 12:42 PM UPPER CUTTER OUT Oxygen Saturation 100% 07/23/2024 3:15 PM UPPER CUTTER OUT Inhaled Oxygen Concentration - - Weight 81.6 kg (180 lb) 07/23/2024 1:00 PM UPPER CUTTER OUT Height 165.1 cm (5' 5) 07/23/2024 1:00 PM UPPER CUTTER OUT Body Mass Index 29.95 07/23/2024 1:00 PM UPPER CUTTER OUT Plan of Treatment Health Maintenance Due Date [...] HEAD BRAIN WO STAT 07/23/2024 2:51 PM UPPER CUTTER OUT EKG 12 LEAD STAT 06/24/2024 8:[address] ABDOMEN PELVIS W STAT 06/24/2024 6 :42 PM UPPER CUTTER OUT CBC WITH AUTO DIFFERENTIAL STAT 06/24/2024 5:27 PM UPPER CUTTER OUT ,SERUM QUALITATIVE STAT 06/24/2024 5:27 PM UPPER CUTTER OUT LIPASE STAT 06/24/2024 5:27 PM UPPER CUTTER OUT HEPATIC FUNCTION PANEL STAT 06/24/2024 5:27 PM UPPER CUTTER OUT BASIC METABOLIC PANEL STAT 06/24/2024 5:27 PM UPPER CUTTER OUT CBC WITH AUTO DIFFERENTIAL STAT 06/24/2024 5:27 PM UPPER CUTTER OUT CBC WITH AUTO DIFFERENTIAL STAT 06/04/2024 8:11 PM UPPER CUTTER OUT LIPASE STAT 06/04/2024 8:11 PM UPPER CUTTER OUT HEPATIC FUNCTION PANEL STAT 06/04/2024 8:11 PM UPPER CUTTER OUT BASIC METABOLIC PANEL STAT 06/04/2024 8:11 PM UPPER CUTTER OUT CBC WITH AUTO DIFFERENTIAL STAT 06/04/2024 8:11 PM UPPER CUTTER OUT EKG 12 LEAD STAT 05/20/2024 8:17 PM UPPER CUTTER OUT TSH STAT 05/20/2024 7:55 PM UPPER CUTTER OUT CBC WITH AUTO DIFFERENTIAL STAT 05/20/2024 7:55 PM UPPER CUTTER OUT MAGNESIUM STAT 05/20/2024 7:55 PM UPPER CUTTER OUT ,SERUM QUALITATIVE STAT 05/20/2024 7:55 PM UPPER CUTTER OUT LIPASE STAT 05/20/2024 7:55 PM UPPER CUTTER OUT HEPATIC FUNCTION PANEL STAT 05/20/2024 7:55 PM UPPER CUTTER OUT BASIC METABOLIC PANEL STAT 05/20/2024 7:55 PM UPPER CUTTER OUT CBC WITH AUTO DIFFERENTIAL STAT 05/20/2024 7:55 PM UPPER CUTTER OUT PLATELET ESTIMATE STAT 05/13/2024 12: 29 AM UPPER CUTTER OUT RED CELL MORPHOLOGY STAT 05/13/2024 1 2:29 AM UPPER CUTTER OUT ,SERUM QUALITATIVE STAT 05/13/2024 12:29 AM UPPER CUTTER OUT LIPASE STAT 05/13/2024 12:29 AM UPPER CUTTER OUT HEPATIC FUNCTION PANEL STAT 05/13/2024 12:29 AM UPPER CUTTER OUT BASIC METABOLIC PANEL STAT 05/13/2024 12:29 AM UPPER CUTTER OUT CBC W PLT NO DIFF STAT 05/13/2024 12: 29 AM UPPER CUTTER OUT from Last 3 Months Results * CT HEAD BRAIN WO (07/23/2024 2:51 PM UPPER CUTTER OUT) Anatomical Region Laterality Modality HEAD, BRAIN Computed Tomogra phy 07/23/2024 2:51 PM UPPER CUTTER OUT Impressions 07/23/2024 3:31 PM UPPER CUTTER OUT No acute intracranial process. Narrative 07/23/2024 3:31 PM UPPER CUTTER OUT For Patients: As a result of the Cures Act, medical imaging exams and procedure reports are released immediately into your electronic medical record. You may view this report before your referring provider. If you have questions, please contact your health care provider. EXAM: CT HEAD BRAIN WO LOCATION: [facility] DATE: 07/23/2024 INDICATION: acute, severe, intractable [...] TISSUES: No acute abnormality. Procedure Note Devon Prasanthjb Woodruff, DO - 07/23/2024 For Patients: As a result of the Century Cures Act, medical imagingexams and procedure reports are released immediately into your electronicmedical record. You may view this report before your referring provider.If you have questions, please contact your health care provider. EXAM: CT HEAD BRAIN WO LOCATION: [facility] DATE: 07/23/2024 INDICATION: acute, severe, intractable headache, [...] * EKG 12 LEAD (06/24/2024 8:22 PM UPPER CUTTER OUT) Only the most recent of2 resultswithin the [...] NOW QTc 453 ms BEYOND NOW P Douglas 45 degrees BEYOND NOW R Douglas 33 degrees BEYOND NOW T Douglas 39 degrees BEYOND NOW 06/24/2024 8:22 PM UPPER CUTTER OUT 06/24/2024 8:54 PM UPPER CUTTER OUT Narrative BEYOND NOW - 06/24/2024 8:54 PM UPPER CUTTER OUT Test Indication: VOMITING Radha ARAUZ EKG ORD F inal Result BEYOND NOW [place], [place] * CT ABDOMEN PELVIS W (06/24/2024 6:42 PM UPPER CUTTER OUT) Anatomical Region Laterality Modality Abdomen, Pelvis, AORTA, LIVER, SPLEEN Computed Tomography 06/24/2024 6:42 PM UPPER CUTTER OUT Impressions 06/24/2024 6:51 PM UPPER CUTTER OUT 1. No acute process in the abdomen or pelvis. 2. IUD in good position. Narrative 06/24/2024 6:51 PM UPPER CUTTER OUT For Patients: As a result of the Cures Act, medical imaging exams and procedure reports are released immediately into your electronic medical record. You may view this report before your referring provider. If you have questions, please contact your health care provider. EXAM: CT ABDOMEN PELVIS W LOCATION: [facility] DATE: 06/24/2024 INDICATION: Abdominal pain and [...] CBC WITH AUTO DIFFERENTIAL (06/24/2024 5:27 PM UPPER CUTTER OUT) Only the most recent of3 resultswithin the time period is included. WHITE BLOOD COUNT 11.7(H) 4.5 - 11.0 thou/cu mm 06/24/2024 5:36 PM UPPER CUTTER OUT [facility] RED BLOOD COUNT 4.03 4.00 - 5.20 mil/cu mm 06/24/2024 5:36 PM UPPER CUTTER OUT [facility] HEMOGLOBIN 12.6 12.0 - 16.0 g/dL 06/24/2024 5:36 PM UPPER CUTTER OUT [facility] HEMATOCRIT 36.9 33.0 - 51.0 % 06/24/2024 5:36 PM UPPER CUTTER OUT [facility] MCV 92 80 - 100 fL 06/24/2024 5:36 PM UPPER CUTTER OUT [facility] MCH 31.3 26.0 - 34.0 pg 06/24/2024 5:36 PM UPPER CUTTER OUT [facility] MCHC 34.1 32.0 - 36.0 g/dL 06/24/2024 5:36 PM UPPER CUTTER OUT [facility] RDW 12.7 11.5 - 15.5 % 06/24/2024 5:36 PM UPPER CUTTER OUT [facility] PLATELET COUNT 186 140 - 440 thou/cu mm 06/24/2024 5:36 PM UPPER CUTTER OUT [facility] MPV 12.1(H) 6.5 - 11.0 fL 06/24/2024 5:36 PM UPPER CUTTER OUT [facility] NRBC 0.0 % 06/24/2024 5:36 PM UPPER CUTTER OUT [facility] ABS NRBC 0.0 thou /cu mm 06/24/2024 5:36 PM UPPER CUTTER OUT [facility] % NEUT 76.5 % 06/24/2024 5:36 PM UPPER CUTTER OUT [facility] % LYMPH 16.9 % 06/24/2024 5:36 PM UPPER CUTTER OUT [facility] % MONO 5.6 % 06/24/2024 5:36 PM UPPER CUTTER OUT [facility] % EOS 0.3 % 06/24/2024 5:36 PM UPPER CUTTER OUT [facility] % BASO 0.3 % 06/24/2024 5:36 PM UPPER CUTTER OUT [facility] % IMMATURE GRAN (METAS,MYELOS,IN OS) 0.4 % 06/24/2024 5:36 PM UPPER CUTTER OUT [facility] ABSOLUTE NEUTROPHILS 8.9(H) 1.7 - 7.0 thou/cu mm 06/24/2024 5:36 PM UPPER CUTTER OUT [facility] ABSOLUTE LYMPHOCYTES 2.0 0.9 - 2.9 thou/cu mm 06/24/2024 5:36 PM UPPER CUTTER OUT [facility] ABSOLUTE MONOCYTES 0.7 <0.9 thou/cu mm 06/24/2024 5:36 PM UPPER CUTTER OUT [facility] ABSOLUTE EOSINOPHILS 0.0 <0.5 thou/cu mm 06/24/2024 5:36 PM UPPER CUTTER OUT [facility] ABSOLUTE BASOPHILS 0.0 <0.3 thou/cu mm 06/24/2024 5:36 PM UPPER CUTTER OUT [facility] ABSOLUTE IMMATURE GRANULOCYTES(MET ,MYELOS,PROS) 0.1 <0.3 thou/cu mm 06/24/2024 5:36 PM UPPER CUTTER OUT [facility] Blood BLOOD SPECIMEN / Unknown IV Start / Unknown 06/24/2024 5:27 PM UPPER CUTTER OUT 06/24/2024 5:31 PM UPPER CUTTER OUT Radha ARAUZ HEMATOLOGY F inal Result [facility] [address] [place], [place] [id number], [place] [phone] * ,SERUM QUALITATIVE (06/24/2024 5:27 PM UPPER CUTTER OUT) Only the most recent of3 resultswithin the time period is included. ,SERU M Negative Negative 06/24/2024 5:46 PM UPPER CUTTER OUT [facility] Blood BLOOD SPECIMEN / Unknown IV Start / Unknown 06/24/2024 5:27 PM UPPER CUTTER OUT 06/24/2024 5:31 PM UPPER CUTTER OUT Radha ARAUZ CHEMISTRY F inal Result [facility] [address] [place] [id number], [place] [phone] * LIPASE (06/24/2024 5:27 PM UPPER CUTTER OUT) Only the most recent of4 resultswithin the time period is included. LIPASE 13.0 13.0 - 60.0 IU/L 06/24/2024 5:51 PM UPPER CUTTER OUT [facility] Blood BLOOD SPECIMEN / Unknown IV Start / Unknown 06/24/2024 5:27 PM UPPER CUTTER OUT 06/24/2024 5:31 PM UPPER CUTTER OUT Radha ARAUZ CHEMISTRY F inal Result [facility] [address] [place] [address], [place] [phone] * HEPATIC FUNCTION PANEL (06/24/2024 5:27 PM UPPER CUTTER OUT) Only the most recent of4 resultswithin the time period is included. ALBUMIN 4.4 4.0 - 4.9 g/dL 06/24/2024 5:51 PM UPPER CUTTER OUT [facility] PROTEIN,TOTAL 7.3 6.0 - 8.0 g/dL 06/24/2024 5:51 PM UPPER CUTTER OUT [facility] BILIRUBIN,TOTAL 0.4 0.0 - 1.2 mg/dL 06/24/2024 5:51 PM UPPER CUTTER OUT [facility] BILIRUBIN,DIRECT 0.2 0.0 - 0.2 mg/dL 06/24/2024 5:51 PM UPPER CUTTER OUT [facility] BILIRUBIN,INDIRE CT 0.2 0.2 - 0.8 mg/dL 06/24/2024 5:51 PM UPPER CUTTER OUT [facility] ALK PHOSPHATASE 64 35 - 104 IU/L 06/24/2024 5:51 PM UPPER CUTTER OUT [facility] ALT (SGPT) 10 10 - 35 IU/L 06/24/2024 5:51 PM UPPER CUTTER OUT [facility] AST (SGOT) 18 10 - 35 IU/L 06/24/2024 5:51 PM UPPER CUTTER OUT [facility] Blood BLOOD SPECIMEN / Unknown IV Start / Unknown 06/24/2024 5:27 PM UPPER CUTTER OUT 06/24/2024 5:31 PM UPPER CUTTER OUT Radha ARAUZ CHEMISTRY F inal Result [facility] [address] [place] [address], * (ABNORMAL) BASIC METABOLIC PANEL (06/24/2024 5:27 PM UPPER CUTTER OUT) Only the most recent of4 resultswithin the time period is included. SODIUM 141 136 - 145 mmol/L 06/24/2024 5:51 PM UPPER CUTTER OUT [facility] POTASSIUM 3.3(L) 3.5 - 5.1 mmol/L 06/24/2024 5:51 PM UPPER CUTTER OUT [facility] CHLORIDE 106 98 - 107 mmol/L 06/24/2024 5:51 PM UPPER CUTTER OUT [facility] CO2,TOTAL 18(L) 22 - 29 mmol/L 06/24/2024 5:51 PM UPPER CUTTER OUT [facility] ANION GAP 17 5 - 18 06/24/2024 5:51 PM UPPER CUTTER OUT [facility] GLUCOSE 128(H) 70 - 99 mg/dL 06/24/2024 5:51 PM UPPER CUTTER OUT [facility] CALCIUM 9.5 8.8 - 10.4 mg/dL 06/24/2024 5:51 PM UPPER CUTTER OUT [facility] Comment: Reference ranges for this test were updated on 04/07/2024 to reflect our healthy population more accurately. Reference range changes are not retroactively applied to results, but previous results using the same methodology can be interpreted in the context of the new reference range. BUN 9 6 - 20 mg/dL 06/24/2024 5:51 PM UPPER CUTTER OUT [facility] CREATININE 0.97(H) 0.50 - 0.90 mg/dL 06/24/2024 5:51 PM UPPER CUTTER OUT [facility] BUN/CREAT RATIO 9(L) 10 - 20 5:51 PM UPPER CUTTER OUT [facility] eGFR 82(L) >90 mL/min/1. 73m2 06/24/2024 5:51 PM UPPER CUTTER OUT [facility] Comment:As of 2021, eG FR is calculated by the CKD-EPI creatinine equation without race adjustment. eGFR can be influenced by muscle mass, exercise, and diet. The reported eGFR is an estimation only and is only applicable if the renal function is stable. Blood BLOOD SPECIMEN / Unknown IV Start / Unknown 06/24/2024 5:27 PM UPPER CUTTER OUT 06/24/2024 5:31 PM UPPER CUTTER OUT Radha ARAUZ CHEMISTRY F inal Result [facility] [address] [place] [address], * TSH (05/20/2024 7:55 PM UPPER CUTTER OUT) TSH 1.65 0.27 - 4.20 uIU/mL 05/20/2024 9:37 PM UPPER CUTTER OUT [facility] Blood BLOOD SPECIMEN / Unknown IV Start / Unknown 05/20/2024 7:55 PM UPPER CUTTER OUT 05/20/2024 7:58 PM UPPER CUTTER OUT Narrative [facility] - 05/20/2024 9:37 PM UPPER CUTTER OUT In Adults, TSH values between 5.00 and 10.00 uIU/ml do not necessarily indicate the presence of Hypothyroidism. Correlation with clinical findings such as presence of goiter and/or Thyroperoxidase (TPO) Antibody may be helpful. For more information please refer to REJI 2004; 291: 228-238. Radha ARAUZ CHEMISTRY F inal Result Performing Organization Address City/[facility]/ZIP Co de Phone Number [facility] [address] [place] [phone], * MAGNESIUM (05/20/2024 7:55 PM UPPER CUTTER OUT) MAGNESIUM 2.0 1.6 - 2.6 mg/dL 05/20/2024 8:18 PM UPPER CUTTER OUT [facility] Blood BLOOD SPECIMEN / Unknown IV Start / Unknown 05/20/2024 7:55 PM UPPER CUTTER OUT 05/20/2024 7:58 PM UPPER CUTTER OUT Radha ARAUZ CHEMISTRY F inal Result Performing Organization Address [facility] Co de Phone Number [facility] [address] [place] [phone], * RED CELL MORPHOLOGY (05/13/2024 12:29 AM UPPER CUTTER OUT) RBC COMMENT RBC morphology appears normal RBC morphology appears normal, RBC morphology within normal limits for newborns. 05/13/2024 1:05 AM UPPER CUTTER OUT [facility] Blood BLOOD SPECIMEN / Unknown IV Start / Unknown 05/13/2024 12:29 AM UPPER CUTTER OUT 05/13/2024 12:39 AM UPPER CUTTER OUT Leo Benoit MD HEMATOLOGY Final Re sult Performing Organization Address City/[facility]/ZIP Co de Phone Number [facility] [address] [place] [phone], * PLATELET ESTIMATE (05/13/2024 12:29 AM UPPER CUTTER OUT) PLATELET ESTIMATE Adequate Adequate, No estimate 05/13/2024 1:05 AM UPPER CUTTER OUT [facility] Blood BLOOD SPECIMEN / Unknown IV Start / Unknown 05/13/2024 12:29 AM UPPER CUTTER OUT 05/13/2024 12:39 AM UPPER CUTTER OUT Leo Benoit MD HEMATOLOGY Final Re sult [facility] [address] [place] [address], * (ABNORMAL) CBC W PLT NO DIFF (05/13/2024 12:29 AM UPPER CUTTER OUT) WHITE BLOOD COUNT 13.8(H) 4.5 - 11.0 thou/cu mm 05/13/2024 1:05 AM [facility] RED BLOOD COUNT 4.27 4.00 - 5.20 mil/cu mm 05/13/2024 1:05 AM UPPER CUTTER OUT [facility] HEMOGLOBIN 13.4 12.0 - 16.0 g/dL 05/13/2024 1:05 AM UPPER CUTTER OUT [facility] HEMATOCRIT 37.9 33.0 - 51.0 % 05/13/2024 1:05 AM UPPER CUTTER OUT [facility] MCV 89 80 - 100 fL 05/13/2024 1:05 AM UPPER CUTTER OUT [facility] MCH 31.4 26.0 - 34.0 pg 05/13/2024 1:05 AM UPPER CUTTER OUT [facility] MCHC 35.4 32.0 - 36.0 g/dL 05/13/2024 1:05 AM UPPER CUTTER OUT [facility] RDW 12.1 11.5 - 15.5 % 05/13/2024 1:05 AM UPPER CUTTER OUT [facility] PLATELET COUNT 228 140 - 440 thou/cu mm 05/13/2024 1:05 AM UPPER CUTTER OUT [facility] MPV 12.3(H) 6.5 - 11.0 fL 05/13/2024 1:05 AM UPPER CUTTER OUT [facility] NRBC 0.0 % 05/13/2024 1:05 AM UPPER CUTTER OUT [facility] ABS NRBC 0.0 thou /cu mm 05/13/2024 1:05 AM UPPER CUTTER OUT [facility] Blood BLOOD SPECIMEN / Unknown IV Start / Unknown 05/13/2024 12:29 AM UPPER CUTTER OUT 05/13/2024 12:39 AM UPPER CUTTER OUT Leo Benoit MD HEMATOLOGY Final Re sult [facility] [address] [place] [phone], from Last 3 Months Insurance [facility] REFERRAL Member Subscriber Plan / Payer (Ef fective 2024-Present) Name:Carrie Silveira Member ID:[id number] Relation to Subscriber:Self Name:Carrie Silveira Subscriber ID:[id number] Payer ID:Not on file Group ID:Not on file Type:Not on file Address: FOR [employer] [facility] [employer] [place] [phone] Advance Directives * Full Code (Latest Code Status on File) Date Activated Date Inactivated Comments 07/01/2019 10:30 AM 07/01/2019 6:30 PM Question Answer Comments Code Status Discussion: Discussed Care Teams 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 PCP - General 12/21/21
--- OUTSIDE RECORDS SUMMARY | 2024-08-07 17:03 | XMS_ITS | Clinical Summary ---
Author Organization [place] Address [address] [place] [address] Care Team Providers Care Adult Educator Name Role Phone [facility]- Primary Care Provider Allergies No known active [...] Department Care Team Description 06/15/2024 7:12 PM CYTOTECHNOLOGIST - 06/15/2024 10:30 PM CYTOTECHNOLOGIST Emergency [facility] Emergency Dept [place] [address] Pepito Clayton MD Nausea and vomiting, unspecified [...] Comments Blood Pressure 106/60 06/15/2024 10:20 PM CYTOTECHNOLOGIST Pulse 54 06/15/2024 10:20 PM CYTOTECHNOLOGIST Temperature 36.1 C (97 F) 06/15/2024 4:54 PM CYTOTECHNOLOGIST Respiratory Rate 18 06/15/2024 10:20 PM CYTOTECHNOLOGIST Oxygen Saturation 100% 06/15/2024 9:40 PM CYTOTECHNOLOGIST Inhaled Oxygen Concentration - - Weight 92.5 kg (204 lb) 06/15/2024 4:54 PM CYTOTECHNOLOGIST Height 167.6 cm (5' 6) 06/15/2024 4:54 PM CYTOTECHNOLOGIST Body Mass Index 32.93 06/15/2024 4:54 PM CYTOTECHNOLOGIST Plan of Treatment Health Maintenance Due Date [...] 12-LEAD, TRACING ONLY STAT 06/15/2024 8:16 PM CYTOTECHNOLOGIST CBC WITH PLATELETS & DIFFERENTIAL STAT 06/15/2024 8:05 PM CYTOTECHNOLOGIST EXTRA RED TOP TUBE STAT 06/15/2024 8: 05 PM CYTOTECHNOLOGIST EXTRA BLUE TOP TUBE STAT 06/15/2024 8 :05 PM CYTOTECHNOLOGIST CBC WITH PLATELETS AND DIFFERENTIAL STAT 06/15/2024 8:05 PM CYTOTECHNOLOGIST EXTRA TUBE STAT 06/15/2024 8:05 PM CYTOTECHNOLOGIST LIPASE STAT 06/15/2024 8:05 PM CYTOTECHNOLOGIST COMPREHENSIVE METABOLIC PANEL STAT 06/15/2024 8:05 PM CYTOTECHNOLOGIST CHLAMYDIA TRACHOMATIS PCR STAT 05/28/2021 2:30 AM CYTOTECHNOLOGIST from Last 3 Months or Most Recently Relevant to Health Maintenance Results * EKG 12 lead (06/15/2024 8:16 PM CYTOTECHNOLOGIST) Systolic Blood Pressure mmHg RADIOLOGY RESULTS Diastolic Blood Pressure mmHg RADIOLOGY RESULTS Ventricular Rate 53 BPM RAD IOLOGY RESULTS Atrial Rate 53 BPM RADIOLOG Y RESULTS SC Interval 144 ms RADIOLOG Y RESULTS QRS Duration 80 ms RADIOLO GY RESULTS QT 492 ms RADIOLOGY RESULTS QTc 461 ms RADIOLOGY RESULTS P [place] 22 degrees RADIOLOGY RESULTS R AXIS 11 degrees RADIOLOGY RESULTS T [place] 20 degrees RADIOLOGY RESULTS Interpretation ECG Sinus bradycardia with Premature atrial complexes in a pattern of bigeminy Nonspecific T wave abnormality Abnormal ECG No previous ECGs available Confirmed by - EMERGENCY ROOM, PHYSICIAN ([id number]), editor map NAVEEN IZQUIERDO ([id number]) on 06/16/2024 6:41:51 AM RADIOLOGY RESULTS 06/15/2024 8:16 PM CYTOTECHNOLOGIST 06/16/2024 6:41 AM CYTOTECHNOLOGIST us Pepito Clayton MD ECG ORDERABLES Edited Resul t - Final RADIOLOGY RESULTS * Extra Red Top Tube (06/15/2024 8:05 PM CYTOTECHNOLOGIST) Hold Specimen JIC 06/15/2024 9:16 PM CYTOTECHNOLOGIST [facility] Blood VENOUS LINE / Unknown Venipuncture / Unknown 06/15/2024 8:05 PM CYTOTECHNOLOGIST 06/15/2024 8:16 PM CYTOTECHNOLOGIST us Pepito Clayton MD LAB - BLOOD ORDERABLES Final Result LABORATORY [facility] [address] Lab (1st floor, no room number) [place] [address] [place] * Extra Blue Top Tube (06/15/2024 8:05 PM CYTOTECHNOLOGIST) Hold Specimen JIC 06/15/2024 9:31 PM CYTOTECHNOLOGIST [facility] Blood VENOUS LINE / Unknown Venipuncture / Unknown 06/15/2024 8:05 PM CYTOTECHNOLOGIST 06/15/2024 8:16 PM CYTOTECHNOLOGIST us Pepito Clayton MD LAB - BLOOD ORDERABLES Final Result LABORATORY [facility] [address] Lab (1st floor, no room number) [place] [address] [place] * (ABNORMAL) CBC with platelets and differential (06/15/2024 8:05 PM CYTOTECHNOLOGIST) WBC Count 18.3(H) 4.0 - 11.0 10e3/uL 06/15/2024 8:20 PM CYTOTECHNOLOGIST [facility] RBC Count 4.25 3.80 - 5.20 10e6/uL 06/15/2024 8:20 PM CYTOTECHNOLOGIST [facility] Hemoglobin 13.4 11.7 - 15.7 g/dL 06/15/2024 8:20 PM CYTOTECHNOLOGIST [facility] Hematocrit 38.5 35.0 - 47.0 % 06/15/2024 8:20 PM CYTOTECHNOLOGIST [facility] MCV 91 78 - 100 fL 06/15/2024 8:20 PM CYTOTECHNOLOGIST [facility] MCH 31.5 26.5 - 33.0 pg 06/15/2024 8:20 PM CYTOTECHNOLOGIST [facility] MCHC 34.8 31.5 - 36.5 g/dL 06/15/2024 8:20 PM CYTOTECHNOLOGIST [facility] RDW 12.6 10.0 - 15.0 % 06/15/2024 8:20 PM CYTOTECHNOLOGIST [facility] Platelet Count 218 150 - 450 10e3/uL 06/15/2024 8:20 PM CYTOTECHNOLOGIST [facility] % Neutrophils 91 % 06/15/2024 8:20 PM CYTOTECHNOLOGIST [facility] % Lymphocytes 5 % 06/15/2024 8:20 PM CYTOTECHNOLOGIST [facility] % Monocytes 3 % 06/15/2024 8:20 PM CYTOTECHNOLOGIST [facility] % Eosinophils 0 % 06/15/2024 8:20 PM CYTOTECHNOLOGIST [facility] % Basophils 0 % 06/15/2024 8:20 PM CYTOTECHNOLOGIST [facility] % Immature Granulocytes 0 % 06/15/2024 8:20 PM CYTOTECHNOLOGIST [facility] NRBCs per 100 WBC 0 <1 /100 025 8:20 PM CYTOTECHNOLOGIST [facility] Absolute Neutrophils 16.7(H) 1.6 - 8.3 10e3/uL 06/15/2024 8:20 PM CYTOTECHNOLOGIST [facility] Absolute Lymphocytes 0.9 0.8 - 5.3 10e3/uL 06/15/2024 8:20 PM CYTOTECHNOLOGIST [facility] Absolute Monocytes 0.6 0.0 - 1.3 10e3/uL 06/15/2024 8:20 PM CYTOTECHNOLOGIST [facility] Absolute Eosinophils 0.0 0.0 - 0.7 10e3/uL 06/15/2024 8:20 PM CYTOTECHNOLOGIST [facility] Absolute Basophils 0.0 0.0 - 0.2 10e3/uL 06/15/2024 8:20 PM CYTOTECHNOLOGIST [facility] Absolute Immature Granulocytes 0.1 <=0.4 10e3/uL 06/15/2024 8:20 PM CYTOTECHNOLOGIST [facility] Absolute NRBCs 0.0 10e3/uL 06/15/2024 8:20 PM CYTOTECHNOLOGIST [facility] Blood VENOUS LINE / Unknown Venipuncture / Unknown 06/15/2024 8:05 PM CYTOTECHNOLOGIST 06/15/2024 8:16 PM CYTOTECHNOLOGIST us Pepito Clayton MD LAB - BLOOD ORDERABLES Final Result [facility] [address] Lab (1st floor, no room number) [place] [address], [facility] * (ABNORMAL) Lipase (06/15/2024 8:05 PM CYTOTECHNOLOGIST) Lipase 10(L) 13 - 60 U/L 06/15/2024 9:14 PM [facility] Blood VENOUS LINE / Unknown Venipuncture / Unknown 06/15/2024 8:05 PM CYTOTECHNOLOGIST 06/15/2024 8:16 PM CYTOTECHNOLOGIST Pepito Clayton MD LAB - BLOOD ORDERABLES Final Result LABORATORY [facility] Lab [address] Lab (1st floor, no room number) [place] [address], [facility] * (ABNORMAL) Comprehensive metabolic panel (06/15/2024 8:05 PM CYTOTECHNOLOGIST) Sodium 140 135 - 145 mmol/L 06/15/2024 9:14 PM [facility] Potassium 3.8 3.4 - 5.3 mmol/L 06/15/2024 9:14 PM [facility] Carbon Dioxide (CO2) 17(L) 22 - 29 mmol/L 06/15/2024 9:14 PM [facility] Anion Gap 19(H) 7 - 15 mmol/L 06/15/2024 9:14 PM [facility] Urea Nitrogen 11.2 6.0 - 20.0 mg/dL 06/15/2024 9:14 PM [facility] Creatinine 0.90 0.51 - 0.95 mg/dL 06/15/2024 9:14 PM [facility] GFR Estimate 89 >60 mL/min/1.7 3m2 06/15/2024 9:14 PM [facility] Comment:eGFR calculated usin 2020 CKD-EPI equation. Calcium 9.6 8.8 - 10.4 mg/dL 06/15/2024 9:14 PM [facility] Comment:Reference intervals for this test were updated on 12/17/2023 to reflect our healthy population more accurately. There may be differences in the flagging of prior results with similar values performed with this method. Those prior results can be interpreted in the context of the updated reference intervals. Chloride 104 98 - 107 mmol/L 06/15/2024 9:14 PM CYTOTECHNOLOGIST LABORATORY Glucose 147(H) 70 - 99 mg/dL 06/15/2024 9:14 PM CYTOTECHNOLOGIST LABORATORY Alkaline Phosphatase 74 40 - 150 U/L 06/15/2024 9:14 PM CYTOTECHNOLOGIST LABORATORY AST 20 0 - 45 U/L 06/15/2024 9:14 PM CYTOTECHNOLOGIST LABORATORY ALT 18 0 - 50 U/L 06/15/2024 9:14 PM CYTOTECHNOLOGIST LABORATORY Protein Total 7.4 6.4 - 8.3 g/dL 06/15/2024 9:14 PM CYTOTECHNOLOGIST LABORATORY Albumin 4.7 3.5 - 5.2 g/dL 06/15/2024 9:14 PM CYTOTECHNOLOGIST LABORATORY Bilirubin Total 0.8 <=1.2 mg/dL 06/15/2024 9:14 PM CYTOTECHNOLOGIST LABORATORY Blood VENOUS LINE / Unknown Venipuncture / Unknown 06/15/2024 8:05 PM CYTOTECHNOLOGIST 06/15/2024 8:16 PM CYTOTECHNOLOGIST Pepito Clayton MD LAB - BLOOD ORDERABLES Final Result LABORATORY [facility] Lab [address] [facility] Lab (1st floor, no room number) [place] [address] [place] * Chlamydia trachomatis PCR (05/28/2021 2:30 AM CYTOTECHNOLOGIST) Chlamydia trachomatis Negative Negative 05/28/2021 11:38 AM CYTOTECHNOLOGIST [facility] Comment:A negative result by inspector fibrous wallboard mediated amplification does not preclude the presence of C. trachomatis infection because results are dependent on proper and adequate collection, absence of inhibitors and sufficient rRNA to be detected. Swab CERVIX UTERI STRUCTURE / Unknown Non-blood Collection / Unknown 05/28/2021 2:30 AM CYTOTECHNOLOGIST 05/28/2021 5:33 AM CYTOTECHNOLOGIST Samina Rojo DO LAB - MICRO GENERAL ORDERA BLES Final Result [facility] Infectious [facility] Diagnostic Lab ([facility]) [address] [place] [address], [facility] [phone] from Last 3 Months or Most Recently Relevant to Health Maintenance [place] Advance Directives For more information, please contact: [phone] * Full Code (Latest Code Status on File) Date Activated Date Inactivated Comments 05/28/2021 11:22 AM 05/29/2021 6:35 PM All basic and advanced life-sustaining interventions are performed as appropriate Question Answer Comments Code status determined by: Discussion with radha nt/ legal decision maker Care Teams Adult Educator Relationship Specialty Start Date End Date [facility]- [address] [place] [address] PCP - General 04/07/24
--- OUTSIDE RECORDS SUMMARY | 2024-08-07 17:03 | XMS_ITS | Clinical Summary ---
Author Organization [facility] Address [address] [place] [address] Care Team Providers Care Livestock Caretaker Name Role Phone Deanna Santana PA-C Primary Care Provider [phone] Source Comments You are receiving this document as you are listed as the primary care provider,follow-up provider, or the patient has been referred to you for consultation.This is in compliance with the Medicare [facility] EHR Incentive Program,which states Providers who transition their patient to another setting of careor provider of care or refers their patient to another provider of care shouldprovide summary care record for each transition of care or referral. [facility] Allergies No known active allergies Medications levonorgestrel [...] 07/31/2002, 0,1997,07/21 Influenza IIV4 (Quadrivalent ) 0.5mL (48388) 04/29/2018,04/27/2016 Influenza, Unspecified Formulation 04/27/2016, MCV4 (Menactra) [...] Sex Assigned at Female 06/05/2021 8:52 PM TOPOLOGY TEACHER Legal Sex Female 8:42 AM TOPOLOGY TEACHER Gender Identity Female 06/05/2021 8:52 PM TOPOLOGY TEACHER Sexual Orientation Straight 06/05/2021 8: 52 PM TOPOLOGY TEACHER Last Filed Vital Signs Vital Sign Reading Time Taken Comments Blood Pressure 99/53 04/25/2022 1:43 PM TOPOLOGY TEACHER Pulse 78 04/25/2022 1:43 PM TOPOLOGY TEACHER Temperature 36.2 C (97.1 F) 04/25/2022 1:13 PM TOPOLOGY TEACHER Respiratory Rate 18 04/25/2022 1:43 PM TOPOLOGY TEACHER Oxygen Saturation 100% 04/25/2022 1: 43 PM TOPOLOGY TEACHER Inhaled Oxygen Concentration - - Weight 101.2 kg (223 lb 1.7 oz) 04/25/2022 9:58 AM TOPOLOGY TEACHER Height 165.1 cm (5' 5) 04/25/2022 9:58 AM TOPOLOGY TEACHER Body Mass Index 37.13 04/25/2022 9:58 AM TOPOLOGY TEACHER Plan of Treatment Health Maintenance Due Date [...] YEARS & OLDER) Routine 04/17/2022 4:13 PM TOPOLOGY TEACHER Vaginal discharge from Last 3 Months or Most Recently Relevant to Health Maintenance Results * Chlamydia & GC (14 Years and Older) (04/17/2022 4:13 PM TOPOLOGY TEACHER) Chlamydia Trachomatis STD Not Detected Not Detected 04/18/2022 5:33 AM TOPOLOGY TEACHER [facility] N. gonorrhoeae STD Not Detected Not Detected 04/18/2022 5:33 AM TOPOLOGY TEACHER [facility] Swab STD SPECIMEN FROM VAGINA / Unknown Non-blood Collection / Unknown 04/17/2022 4:13 PM TOPOLOGY TEACHER 04/17/2022 4:37 PM TOPOLOGY TEACHER [facility] - 04/18/2022 5:33 AM TOPOLOGY TEACHER Test performed by Horticultural Services Supervisor Mediated Amplification (TMA). Gisselle Hoyos MD LAB_1 Final Result [facility] [address] [place] [address], [facility] [phone] from Last 3 Months or Most Recently Relevant to Health Maintenance Insurance [place] [phone] Advance Directives * Full Code (Latest Code Status on File) Date Activated Date Inactivated Comments 04/25/2022 9:57 AM 04/25/2022 4:18 PM Care Teams Livestock Caretaker Relationship Specialty Start Date End Date Deanna Santana [facility] [address] [place] [address] PCP - General Physician Director Of Application Development 03/23/22
[2024-08-07] MEDS: KETOROLAC 15 MG/ML inj IVP (17:06)
[2024-08-07] MEDS: 0.9 % SODIUM CHLORIDE 1000 ml 1,000 ML IV (17:06)
[2024-08-07 17:07] LABS: Erythrocyte SedimentationRate* 6 mm/hr (2-20)
[2024-08-07] MEDS: diphenhydrAMINE 50 MG/ML inj 12.5 MG IVP (17:09)
[2024-08-07] MEDS: METOCLOPRAMIDE HCL 5 MG/ML INJ 10 MG IVP (17:11)
[2024-08-07 17:44] LABS: C Reactive Protein* < 0.5 mg/dL (0.5-1.0)
[2024-08-07] MEDS: OLANZapine 5 MG/ML inj IVP (18:43)
[2024-08-07 19:25] LABS: HCG Qualitative Serum* Negative (Negative)
[2024-08-07 21:36] LABS: Appearance CSF Clear (Clear); Color CSF Colorless (Colorless)
[2024-08-07 23:00] LABS: CSF Polynuclear Cells 100 %
[2024-08-07 23:09] LABS: CSF Mononuclear Cells 0 %; RBC, CSF 0 Cells/uL; WBC, CSF 1 Cells/uL
[2024-08-07 23:30] LABS: Glucose, CSF* 66 mg/dL (40-70)
[2024-08-07 23:36] LABS: Total Protein, CSF 171 mg/dL (15-45)
== END 2024-08-07 23:15 | disposition home or self-care (01) ==
PROVIDERS: Emergency Provider Emergency Medicine; PCP Family Medicine
DX: R51.9 Headache, unspecified (principal)
CPT/HCPCS: 62270; 36415; 70450; 70496; 70498; 82375; 82945; 83021; 84157; 84703; 85651; 86140; 87070; 89051; 96374; 96375; 99284; 99285; J1200; J1885; J2765; J7030; Q9967